=== PATIENT | female | born 1980 | race Caucasian/White ===

== ENCOUNTER 2018-01-15 21:33 | Emergency (ER) | payer MEDICAID, SELFPAY ==
[2018-01-15 21:34] VITALS: BP 119/78; PULSE 113; RESP 15; TEMP 35.3; O2SAT 98; BMI 23.8
[2018-01-15] MEDS: Cephalexin 250 MG Capsule 500 MG PO (22:29)
--- NOTE | 2018-01-15 22:39 | ED.VISSUMM ---
- ER Visit Summary Date of Service: 01/15/18 Chief Complaint: Draining scalp abscess History of Present Illness: The patient is a 37 F history of prior heroin abuse. Also prior GI bleed for which she needed a laparoscopy and blood transfusions. Patient states that the last 2 weeks she has had an abscess on top of her scalp. It had increased swelling and last night she took a knife and opened it up. It has been draining pus today. She denies any fever or chills. Physical Examination: Well-appearing young female. Vital signs are stable afebrile. She does not look septic or toxic. She is currently in no acute distress. HEENT exam poor dentition. Multiple cavities and decay. Top anterior aspect of her scalp just past her hairline there is a 1 cm abscess that is flat open and draining a small amount of pus. It is already opened. There is no surrounding cellulitis it is mildly tender. Neck nontender. Trachea midline. Lungs clear to auscultation bilaterally. Heart regular rhythm no murmur. Abdomen soft nontender very well-healed old midline ex-lap incision. Moving all 4 extremities. Calves nontender. She does have significant scarring in both antecubital areas from track molina from prior heroin abuse. Test Results: None Emergency Department Course and Treatment: Patient has an open draining abscess on the top of her scalp. This does not need to be drained at this time. There is currently no fluctuance. There is no cellulitis. Treatment Plan: Keflex 4 times daily for 10 days. Tylenol for pain. I will have them put let on the wound to help decrease her discomfort. Narcotic pain medications are out of the question. Disposition: Discharge Impression: Acute scalp abscess that is currently draining. History of heroin abuse This note was generated with [employer] dictation software. It may contain incorrect words, spelling, and punctuation that were not noted in review of the chart prior to signing ED Disposition - Plan for ED Patient: Chief Complaint: Abscess Referrals: Nory Thompson MD [Primary Care Provider] -
--- NOTE | 2018-01-15 22:42 | ED.DEP ---
ED Disposition - Plan for ED Patient: Disposition: Home or Assisted Living Chief Complaint: Abscess Instructions: ED Staph Infec Abx Tx Only Prescriptions: Cephalexin [Keflex] 500 mg PO Q6 #40 cap Referrals: Nory Thompson MD [STAFF PHYSICIAN] - Additional Instructions: Warm compresses and hot showers atop your head. Keflex 1 pill 4 times a day. Follow-up with the [facility] since clinic.
[2018-01-15 22:56] VITALS: PULSE 120; RESP 16; O2SAT 98
== END 2018-01-15 22:57 | disposition home or self-care (01) ==
PROVIDERS: Emergency Provider Emergency Medicine
DX: L02.811 Cutaneous abscess of head [any part, except face] (principal); F11.11 Opioid abuse, in remission; Z72.0 Tobacco use
CPT/HCPCS: 99282

== ENCOUNTER 2018-04-09 15:34 | Inpatient (IN) | payer SELFPAY ==
[2018-04-09 15:41] VITALS: BP 151/96; PULSE 65; RESP 15; TEMP 36.8; O2SAT 96; BMI 23.1
--- NOTE | 2018-04-09 15:46 | ED.RN ---
PT ENTERED ER VIA EMS THROUGH THE HAZMAT ROOM. PT WAS CHANGED INTO A GOWN AND HOSPITAL SOCKS AND NO BUGS NOTED. PT HAS MULTIPLE BRUISES ON HER ARMS.
--- NOTE | 2018-04-09 15:51 | CT_ITS ---
STUDY: CT ABDOMEN AND PELVIS WITHOUT CONTRAST REASON FOR EXAM: Female, 37 years old. Abdominal pain, cramping. RADIATION DOSAGE (If Supplied By Facility): CTDIvol = ( 6.27 ) mGy, DLP = ( 321.13 ) mGycm TECHNIQUE: Transaxial images were obtained from the dome of the diaphragm to the symphysis pubis without oral contrast, and without intravenous contrast. Sagittal and coronal images were reconstructed. Individualized dose optimization techniques were used for this CT. COMPARISON: None. FINDINGS: The visualized lung bases are unremarkable. The visualized portions of the heart are within normal limits. Normal liver. Normal gallbladder and extrahepatic biliary system. Normal spleen. Normal pancreas. Normal bilateral adrenal glands. Normal right kidney. Normal left kidney. The aorta is normal in caliber. There are multiple loops of dilated, fluid-filled small bowel in the upper abdomen consistent with high-grade bowel obstruction. Abrupt transition or stenotic segment is identified in the mid pelvis. Closed loop obstruction cannot be excluded. The obstruction is at the level of the mid to distal jejunum. The ileum appears decompressed. Colon is normal in caliber. There is mild free fluid in the abdomen. There is no free air Normal urinary bladder. Normal abdominal wall. Normal osseous structures. CT/Abdomen/Pelvis without Cont IMPRESSION: 1. High-grade small bowel obstruction with transition in the mid pelvis. No evidence of perforation. 2. Mild free fluid. N.B. : The above information has been verbally conveyed by Rosanna Hunt MD to Román Benjamin MD, on 04/09/2018 18:55:48 (ET). Electronically Signed: Rosanna Hunt MD at 18:50 EDT Tel , Service support ,
--- NOTE | 2018-04-09 15:53 | ED.VISSUMM ---
- ER Visit Summary Date of Service: 04/09/18 Chief Complaint: Abdominal pain History of Present Illness: The patient is a 37 F presenting for evaluation secondary to abdominal pain. Patient states that she has an underlying history of a laparotomy about 3 years ago secondary to a perforated duodenal ulcer from overuse event peds. Patient reports that since yesterday she had an onset of abdominal pain. She reports that it is a waxing and waning continuous abdominal pain that she describes as being mostly across her upper abdomen. She reports been associated with nausea no vomiting. She denies any presence of fevers associated with this. Patient denies any urinary signs or symptoms associated with this. Patient denies that she is taking any sort of of prescription medications. She does state that she drinks smokes cigarettes and uses THC. Review of systems otherwise negative. Physical Examination: Vital signs are within normal limits other than mild hyper tension. Unkempt female visibly uncomfortable secondary to pain rolling around in bed holding her stomach. Head normocephalic. Eyes are injected bilaterally with no evidence of conjunctival pallor or scleral icterus. Moist mucous membranes with poor dentition. Neck supple. Heart regular rate and rhythm. Lungs clear. Abdomen tender diffusely with no localization and some guarding noted. Large midline surgical scar is noted to be well-healed. No peripheral edema. No evidence of splinter hemorrhages Osler nodes or Janeway lesions no evidence of skin rashes or petechia. Remainder of physical otherwise unremarkable. Test Results: CBC, chemistry, lactic acid found to be unremarkable. CT abdomen and pelvis demonstrates evidence of a high-grade bowel obstruction Emergency Department Course and Treatment: Patient presented for evaluation secondary to abdominal pain. Patient had a relatively significant abdominal exam I was concerned for the possibility of intra-abdominal pathology. IV was established patient was given morphine Zofran and fluids. Laboratory workup was unremarkable, but CT showed evidence of the patient having a high-grade bowel obstruction. NG tube was ordered, I discussed patient's case with Dr. Bermeo general surgery who states that he will see the patient in consult. Patient will be admitted for further treatment with NG tube and further observation under the hospitalist. Disposition: Admission Impression: 1. High-grade bowel obstruction This note was generated with [employer] dictation software. It may contain incorrect words, spelling, and punctuation that were not noted in review of the chart prior to signing ED Disposition - Plan for ED Patient: Chief Complaint: Abd Pain Referrals: Care Physician,No Primary [NON-STAFF] -
[2018-04-09] MEDS: Ondansetron 4 MG/2 ML Vial IV (17:17)
[2018-04-09] MEDS: Mag Hydrox/Al Hydrox/Simeth 30 ML UDC PO (17:18)
[2018-04-09] MEDS: 0.9% Normal Saline 1,000 ML 1000 ML IV (17:18)
[2018-04-09] MEDS: Morphine 4 MG/ML Syringe IV (17:19)
[2018-04-09 17:29] LABS: Absolute Lymphocyte Count 0.59 X10^3/ul (0.83-4.51); Absolute Neutrophil Count 5.9 X10^3/uL (2.0-7.7); Basophil# 0.02 X10^3/uL; Basophil% 0.3 % (0-1); Differential Indicated SCAN CRITERIA MET; Eosinophil# 0.07 X10^3/uL; Hematocrit 45.6 % (37-47); Hemoglobin 14.7 g/dl (12.0-15.0); Lymphocyte # 0.59 X10^3/ul (4.0); Lymphocyte % 8.3 % (19-41); Mean Corp Hgb Conc 32.2 g/gl (32-36); Mean Corpuscular Hgb 29.9 pg (27.0-32.0); Mean Corpuscular Volume 92.9 fL (81-99); Mean Platelet Vol. 9.8 fl (6.2-12.0); Monocyte% 8.4 % (0-10); Neutrophil # 5.86 X10^3/uL (2.7-7.7); POSITIVE COUNT NO; POSITIVE DIFFERENTIAL YES; POSITIVE MORPHOLOGY NO; Platelet Count 184 K/mm3 (150-450); RBC Distribution Width CV 13.1 % (11.6-14.6); RBC Distribution Width SD 44.5 fl (35.1-43.9); Red Blood Count 4.91 M/mm3 (4.2-5.4); White Blood Count 7.1 K/mm3 (4.4-11.0)
[2018-04-09 17:34] VITALS: BP 145/121; PULSE 89; RESP 16; O2SAT 96
[2018-04-09 17:39] LABS: ALB/GLOB Ratio 0.9 RATIO (0.9-2.4); AST(SGOT) 71 U/L (15-37); Alanine Aminotransfer ALT/SGPT 136 U/L (13-56); Albumin, Serum 3.5 g/dL (3.2-5.0); Alkaline Phosphatase 80 U/L (45-117); Anion Gap 6 (5-15); BUN 21 mg/dL (7-18); Calcium,Total 8.9 mg/dL (8.5-10.1); Chloride 104 mmol/L (98-107); Creatinine, Serum 0.78 mg/dL (0.55-1.02); EST Glomerular Filtration Rate 89 mL/min (>60); Est Glom Filt Rate - Afr Amer 108 mL/min (>60); Estimated Creatinine Clearance 89.72 ml/min; Glucose 82 mg/dL (74-106); Lipase 79 U/L (73-393); Potassium 3.9 mmol/L (3.5-5.1); Protein, Total 7.5 g/dL (6.4-8.2); Sodium Level 139 mmol/L (136-145)
[2018-04-09 17:53] LABS: Pregnancy, Serum, hCG Quali. NEGATIVE Negative (0-9 Nonpreg)
[2018-04-09 18:00] VITALS: BP 146/89
[2018-04-09 18:03] LABS: Differential Comment SCANNED
[2018-04-09 18:06] LABS: Lactic Acid 0.7 mmol/L (0.4-2.0)
--- NOTE | 2018-04-09 19:05 | RAD_ITS ---
STUDY: X-RAY - ABDOMEN/PELVIS REASON FOR EXAM: Female, 37 years old. An NG tube placement. TECHNIQUE: Supine view of the chest/abdomen. COMPARISON: None. FINDINGS: Normal visualized lung del real. Nasogastric tube terminates in the stomach. Dilated, gas-filled small bowel loop is noted in the left upper quadrant measuring 4.5 cm. Stool burden is moderate. Anastomotic suture is noted in the left upper quadrant. No abnormal calcifications. Bony structures are unremarkable. RAD/Abdomen Single View (Portable) IMPRESSION: 1. NG tube terminates in the stomach. 2. Dilated small bowel consistent with previously demonstrated obstruction. Electronically Signed: Rosanna Hunt MD at 20:17 EDT Tel , Service support ,
--- NOTE | 2018-04-09 19:51 | CON.PCM_ITS ---
Problem List (1) Small bowel obstruction Status: Acute Reason for Consult Date of Consultation: 04/09/18 History of Present Illness: The patient is a 37 year old F who presents to the emergency room with a 2-day history of abdominal crampy pain. I have been asked to see this patient in surgical consultation by Dr Benjamin and a electronic copy of my surgical consult will be present on the chart. The patient states that in [facility] March 29, 2015 because of a perforated duodenal ulcer she had an exploratory laparotomy. She claims that she received multiple units of blood transfusion and platelets. She developed abdominal achy pain yesterday morning. Today she has not been able to eat last bowel movement was last night. Because of increased severity of pain she was encouraged to come to the emergency room. She does not have a local primary care physician. Her white blood cell count is 7.1 with a hemoglobin 14.7 and hematocrit 45.6 platelet count 184,000 with 82% neutrophils. BUN is elevated at 21 creatinine is 0.78. Lactic acid level 0.7. AST is elevated to 71. ALT is elevated at 136. Total bilirubin was 0.4. Alkaline phosphatase 80. Lipase is 79. Serum test is negative. Coags were not obtained.A CT scan without oral or IV contrast suggest small bowel obstruction. This is felt to be high-grade transition in the mid pelvis. Mild free fluid. Upon my arrival the patient just had an NG tube placed by nursing in the emergency room. She has copious bleeding from her left nares at the site of the NG tube. Upon questioning the patient she is a routine methamphetamine user and marijuana user. She routinely uses cigarettes had a pack per day and drinks alcohol routinely at 1-3 beers daily Past Medical History Allergies ibuprofen Adverse Reaction (Verified 01/15/18 21:37) Other Home Medications: Ambulatory Orders Medication Instructions Recorded Cephalexin [Keflex] 500 mg PO Q6 #40 cap 01/15/18 Surgical History: - - Exploratory laparotomy for duodenal ulceration Smoking Status: Current every day smoker Review of Systems Constitutional: Reports: Anorexia HEENT: Reports: Difficulty Swallowing Gastrointestinal: Reports: Abdominal Pain, Nausea, Vomiting Hematologic/ Lymphatic: Reports: Easy Bruising, Easy Bleeding Patient Problems: Active and Suspected Problems Small bowel obstruction (Acute) - Physical Exam General: Alert, Oriented x3, Cooperative, - - Evidence of poor dentition Oral: Moist Mucosa Neck: Supple Lungs: Clear to auscultation, - - Diminished air excursion Cardiovascular: Regular rate, Regular Rhythm Abdomen: Hypoactive Bowel Sounds, Distended, - - Mild tenderness to palpation to the right lower quadrant greater than left lower quadrant Long midline incision from the xiphoid all the way below the umbilicus. Small reducible incisional umbilical hernia Extremities: No Calf Tenderness Skin: Rash Present, - - Areas of self excoriation particularly face forehead Musculoskeletal: - - Patient is noted to be very slender Psych/Mental Status: Normal Affect Vital Signs Temp Pulse Resp BP Pulse Ox 98.2 F 89 16 146/89 H 96 04/09/18 15:41 04/09/18 17:34 04/09/18 17:34 04/09/18 18:00 04/09/18 17:34 Oxygen Delivery Method Room Air Weight: 139 lb 5.314 oz Body Mass Index (BMI) 23.1 Laboratory Tests Past 24 Hrs 04/09/18 04/09/18 04/09/18 17:05 17:05 17:05 WBC 7.1 RBC 4.91 Hgb 14.7 Hct 45.6 MCV 92.9 MCH 29.9 MCHC 32.2 RDW 13.1 RDW Differential 44.5 H Plt Count 184 MPV 9.8 Immature Gran % (Auto) 0.000 Neut % (Auto) 82.0 H Lymph % (Auto) 8.3 L [place] % (Auto) 8.4 Eos % (Auto) 1.0 Baso % (Auto) 0.3 Absolute Neuts (auto) 5.9 Absolute Lymphs (auto) 0.59 L Total Counted Not Reportable Differential Comment SCANNED Sodium 139 Potassium 3.9 Chloride 104 Carbon Dioxide 29.0 Anion Gap 6 BUN 21 H Creatinine 0.78 Estim Creat Clear Calc 89.72 Est GFR (MDRD) Af Amer 108 Est GFR (MDRD) Non-Af 89 BUN/Creatinine Ratio 27.0 H Glucose 82 Lactic Acid Calcium 8.9 Total Bilirubin 0.40 AST 71 H ALT 136 H Alkaline Phosphatase 80 Total Protein 7.5 Albumin 3.5 Globulin 4.0 Albumin/Globulin Ratio 0.9 Lipase 79 Serum , Qual NEGATIVE 04/09/18 17:25 WBC RBC Hgb Hct MCV MCH MCHC RDW RDW Differential Plt Count MPV Immature Gran % (Auto) Neut % (Auto) Lymph % (Auto) [place] % (Auto) Eos % (Auto) Baso % (Auto) Absolute Neuts (auto) Absolute Lymphs (auto) Total Counted Differential Comment Sodium Potassium Chloride Carbon Dioxide Anion Gap BUN Creatinine Estim Creat Clear Calc Est GFR (MDRD) Af Amer Est GFR (MDRD) Non-Af BUN/Creatinine Ratio Glucose Lactic Acid 0.7 Calcium Total Bilirubin AST ALT Alkaline Phosphatase Total Protein Albumin Globulin Albumin/Globulin Ratio Lipase Serum , Qual Assessment/Plan All Active Problems Small bowel obstruction (Acute) Noncontrasted CT scan suggest small bowel obstruction. The patient has epistasis now radiated to his left nares NG tube. She has poor dentition. Multiple areas of self excoriation. Multiple areas of ecchymosis. She presents with history of tobacco and alcohol and methamphetamine and marijuana use. At an outside hospital she has had previous surgery involving a long midline incision from the xiphoid to below the umbilicus. We do not have records of this hospitalization. Initially she suggested that she had a duodenal perforation. Some of her description of the surgery sounds like it was possibly more of a duodenal bleed Mild elevation of AST and ALT noted. Difficult to assess at this moment the degree of potential liver dysfunction. Patient at risk history for hepatitis/cirrhosis/varices She does not appear to have an acute surgical abdomen at this moment. I recommend nonoperative management with correct placement of NG tube. I recommend medical maximization of her care. Coags will be requested. I have encouraged the patient to mobilize and ambulate. She clearly would be an incre ased operative risk. To the extent of her midline incision is unlikely that she would be a candidate for laparoscopy and would require repeat laparotomy. I will follow with you. If she is not improved likely will obtain a repeat CT scan with contrast in the morning. Beck Bermeo M.D., F.A.C.S.
[2018-04-09 20:20] LABS: International Normalized Ratio 0.9; Prothrombin Time (Protime)PT. 12.2 SECONDS (11.7-14.9)
--- NOTE | 2018-04-09 20:37 | PCM.HP.STD ---
Problem List (1) Small bowel obstruction Status: Acute (2) Tobacco use Status: Chronic (3) Elevated liver enzymes Status: Chronic (4) Methamphetamine abuse Status: Chronic (5) Cannabis abuse Status: Chronic (6) Alcohol abuse Status: Chronic History of Present Illness Date of Admission: 04/09/18 Chief Complaint: Abdominal pain The patient is a 37 y/o F w/ PMHx: Prior Perforated Duodenal Ulcer s/p duodenoplasty 03/2015 at [facility], tobacco use, history of IV drug abuse including heroin usage although notes no IV usage for approximately 1-2 years, ongoing methamphetamine usage smoked and snorted, cannabis usage daily, alcohol abuse with 1-3 tall boys at least daily who presents to the [facility] on 04/09/18 with history of progressively worsening abdominal pain, distention, nausea without emesis and inability to take po w/ last BM the evening prior noted to be firm and small. Pain rated 10/10 initially, improved after NGT placement in the ED but still severe. In the ED work-up included T 98.2, heart rate 65, BP 151/96, respiratory rate 15, 96% on room air, CBC with WBC 7.1, hemoglobin 14.7, platelet 184 without market shift, markable coags, CMP with BUN/creatinine 21/0.78, lactic acid 0.7, AST/ALT 71/136, lipase 79, serum negative, CT abdomen and pelvis with high-grade small bowel obstruction with transition in the mid pelvis with no evidence of perforation with mild free fluid, KUB following NG tube placement with NG tube termination in the stomach with dilated small bowel consistent with previously demonstrated obstruction on CT. In the ED patient given normal saline in addition to bowel regimen. Dr. Bermeo, surgeon consulted per ED and evaluated patient in the emergency room. Past Medical History Past Medical History (Chronic Problems): Chronic Problems Tobacco use (Chronic) Elevated liver enzymes (Chronic) Methamphetamine abuse (Chronic) Cannabis abuse (Chronic) Alcohol abuse (Chronic) Allergies ibuprofen Adverse Reaction (Verified 01/15/18 21:37) Other Home Medications: Ambulatory Orders Medication Instructions Recorded NK 04/09/18 Surgical History: - - Exploratory laparotomy for duodenal ulceration w/ duodenoplasty, BLTL. Psychiatric History: No pertinent psych hx SIGHTER History: No pertinent SIGHTER history Lives: Alone Smoking Status: Current every day smoker - 1/2-1 ppd cigarette tobacco usage. Tobacco Use: Cigarettes Alcohol: Heavy - Patient notes at least 1-3 tall boys per day. Drugs: - - Patient notes daily cannabis usage, intermittent methamphetamine usage snorted and smoked, prior history of methamphetamine and heroin injection but she denies any IV drug usage in the past 1-2 years. - *Family History Maternal History Items: - - Patient notes a maternal and paternal family history of heart disease, diabetes, high blood pressure. Paternal History Items: - - Patient notes a maternal and paternal family history of heart disease, diabetes, high blood pressure. Review of Systems Constitutional: Reports: Anorexia, Malaise, Weakness, Fatigue. Denies: Chills, Fever, Weight Change HEENT: Denies: Head Aches, Sinus Congestion, Sinus Drainage Cardiovascular: Denies: Chest Pain, Palpitations Respiratory: Denies: Cough, Shortness of breath at rest, Sputum production Gastrointestinal: Reports: Abdominal Pain, Constipation, Nausea. Denies: Vomiting Genitourinary: Denies: Dysuria Musculoskeletal: Denies: Joint Pain, Joint Tenderness Skin: Denies: Rash, Wounds Neurological: Denies: Numbness, Tingling, Focal weakness Psychiatric: Denies: Anxiety, Depression, Homicidal Ideations, Suicidal Ideations Hematologic/ Lymphatic: Denies: Easy Bruising, Easy Bleeding VTE Information - Inpt Only VTE Present on Admission: No VTE Mechan Device Prophylaxis: SCD's VTE Pharm Prophylaxis ordered?: Yes Patient Problems: Active and Suspected Problems Small bowel obstruction (Acute) Subjective: Seated upright in the ED bed, uncomfortable appearing, falling asleep frequently, NGT in place. Objective: Physical Examination: General: awakens to stimuli but falls asleep quickly, intermittently alert, oriented x 3 and cooperative, seated upright in the ED bed, notes pain lessened but still ongoing, s/p NGT placement. Skin: normal color, turgor, no icterus, cyanosis. HEENT: AT/NC, EOMI, PERRLA, dry MM, NGT in place, no carotid bruits or JVD noted. Lungs: CTA bilaterally, moderate effort, mild decrease BL bases, no rales, ronchi or wheezing. Heart: Regular rate and rhythm; no gallop, rub audible. Abdomen: soft but was firm prior per ED physician, now s/p NGT in place, still severely TTP, absent BS in all quadrants, no longer distended, difficult to assess HSM secondary to pain. Extremities: no cyanosis, clubbing, or edema. Neurological: awakens to stimuli but falls asleep quickly, intermittently alert, oriented x 3 and cooperative; cognitive function primarily intact; pupils equally reactive to light and accomodation; cranial nerves II-XII grossly normal, moving all 4 extremities, no focal deficits, strength severely globally decreased secondary to acute presentation. Psychiatric: affect appears fatigued, flat, no acute evidence of depressive or anxiety feelings. - Physical Exam Vital Signs Temp Pulse Resp BP Pulse Ox 98.2 F 89 16 146/89 H 96 04/09/18 15:41 04/09/18 17:34 04/09/18 17:34 04/09/18 18:00 04/09/18 17:34 Oxygen Delivery Method Room Air Weight: 139 lb 5.314 oz Body Mass Index (BMI) 23.1 Laboratory Tests Past 24 Hrs 04/09/18 04/09/18 04/09/18 17:05 17:05 17:05 WBC 7.1 RBC 4.91 Hgb 14.7 Hct 45.6 MCV 92.9 MCH 29.9 MCHC 32.2 RDW 13.1 RDW Differential 44.5 H Plt Count 184 MPV 9.8 Immature Gran % (Auto) 0.000 Neut % (Auto) 82.0 H Lymph % (Auto) 8.3 L [place] % (Auto) 8.4 Eos % (Auto) 1.0 Baso % (Auto) 0.3 Absolute Neuts (auto) 5.9 Absolute Lymphs (auto) 0.59 L Total Counted Not Reportable Differential Comment SCANNED PT INR APTT Sodium 139 Potassium 3.9 Chloride 104 Carbon Dioxide 29.0 Anion Gap 6 BUN 21 H Creatinine 0.78 Estim Creat Clear Calc 89.72 Est GFR (MDRD) Af Amer 108 Est GFR (MDRD) Non-Af 89 BUN/Creatinine Ratio 27.0 H Glucose 82 Lactic Acid Calcium 8.9 Total Bilirubin 0.40 AST 71 H ALT 136 H Alkaline Phosphatase 80 Total Protein 7.5 Albumin 3.5 Globulin 4.0 Albumin/Globulin Ratio 0.9 Lipase 79 Serum , Qual NEGATIVE 04/09/18 04/09/18 17:05 17:25 WBC RBC Hgb Hct MCV MCH MCHC RDW RDW Differential Plt Count MPV Immature Gran % (Auto) Neut % (Auto) Lymph % (Auto) [place] % (Auto) Eos % (Auto) Baso % (Auto) Absolute Neuts (auto) Absolute Lymphs (auto) Total Counted Differential Comment PT 12.2 INR 0.9 APTT 31.0 Sodium Potassium Chloride Carbon Dioxide Anion Gap BUN Creatinine Estim Creat Clear Calc Est GFR (MDRD) Af Amer Est GFR (MDRD) Non-Af BUN/Creatinine Ratio Glucose Lactic Acid 0.7 Calcium Total Bilirubin AST ALT Alkaline Phosphatase Total Protein Albumin Globulin Albumin/Globulin Ratio Lipase Serum , Qual Assessment/Plan All Active Problems Small bowel obstruction (Acute) The patient is a 37 y/o F w/ PMHx: Prior Perforated Duodenal Ulcer s/p duodenoplasty 03/2015 at [facility], Tobacco use, Hx of IV drug abuse including heroin usage although notes no IV usage for approximately 1-2 years, ongoing methamphetamine usage smoked and snorted, cannabis usage daily, alcohol abuse with 1-3 tall boys at least daily who presents to the [facility] on 04/09/18 with history of progressively worsening abdominal pain, distention, nausea without emesis and inability to take po w/ last BM the evening prior noted to be firm and small. (1) Abdominal pain, nausea, emesis w/ SBO: In the ED work-up included CT A/P w/ evidence of high-grade small bowel obstruction with transition in the mid pelvis with no evidence of perforation with mild free fluid. Will admit to [facility], maintain on IVFs, continue NGT to suction, strict I&Os, IV pain/anti-emetics PRN, planned AM CT Abd/Pel per Surgery thus will defer serial KUB but may add as needed to montior bowel function, PPI IV, maintain NPO on bowel rest. General surgery as noted consulted and following. (2) Polysubstance Abuse, IVDA Hx: Patient currently not candidate for hep C treatment currently as needs to be clean, sober x 6 months, documented attendance NA or AA meetings, counseling and ongoing negative drug screens; however, amenable to HIV and hepatitis assessment. (3) Tobacco Abuse: Encouraged cessation, inpatient consultation per RT, NR if desired. (4) Elevated LFTs: Admission AST/ALT 71/136, suspect chronic, hepatitis panel pending as noted. (5) Tobacco Abuse: Encouraged cessation, inpatient consultation per RT, NR if desired. (6) History of Perforated Duodenal Ulcer: s/p rhinoplasty, maintain on IV PPI as noted above. Complicates presentation, #1. (7) DVT prophylaxis: SCDs, lovenox w/ AM hold for possible OR needs if not improving. Code Visit Inpatient E&M: 18697 Init Hosp L3
--- NOTE | 2018-04-09 20:41 | HP.PCM_ITS ---
Problem List (1) Small bowel obstruction Status: Acute (2) Tobacco use Status: Chronic (3) Elevated liver enzymes Status: Chronic (4) Methamphetamine abuse Status: Chronic (5) Cannabis abuse Status: Chronic (6) Alcohol abuse Status: Chronic History of Present Illness Date of Admission: 04/09/18 Chief Complaint: Abdominal pain The patient is a 37 y/o F w/ PMHx: Prior Perforated Duodenal Ulcer s/p duodenoplasty 03/2015 at [facility], tobacco use, history of IV drug abuse including heroin usage although notes no IV usage for approximately 1-2 years, ongoing methamphetamine usage smoked and snorted, cannabis usage daily, alcohol abuse with 1-3 tall boys at least daily who presents to the [facility] on 04/09/18 with history of progressively worsening abdominal pain, distention, nausea without emesis and inability to take po w/ last BM the evening prior noted to be firm and small. Pain rated 10/10 initially, improved after NGT placement in the ED but still severe. In the ED work-up included T 98.2, heart rate 65, BP 151/96, respiratory rate 15, 96% on room air, CBC with WBC 7.1, hemoglobin 14.7, platelet 184 without market shift, markable coags, CMP with BUN/creatinine 21/0.78, lactic acid 0.7, AST/ALT 71/136, lipase 79, serum negative, C T abdomen and pelvis with high-grade small bowel obstruction with transition in the mid pelvis with no evidence of perforation with mild free fluid, KUB following NG tube placement with NG tube termination in the stomach with dilated small bowel consistent with previously demonstrated obstruction on CT. In the ED patient given normal saline in addition to bowel regimen. Dr. Bermeo, surgeon consulted per ED and evaluated patient in the emergency room. Past Medical History Past Medical History (Chronic Problems): Chronic Problems Tobacco use (Chronic) Elevated liver enzymes (Chronic) Methamphetamine abuse (Chronic) Cannabis abuse (Chronic) Alcohol abuse (Chronic) Allergies ibuprofen Adverse Reaction (Verified 01/15/18 21:37) Other Home Medications: Ambulatory Orders Medication Instructions Recorded NK 04/09/18 Surgical History: - - Exploratory laparotomy for duodenal ulceration w/ duodenoplasty, BLTL. 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 Tobacco Use: Cigarettes Alcohol: Heavy - Patient notes at least 1-3 tall boys per day. Drugs: - - Patient notes daily cannabis usage, intermittent methamphetamine usage snorted and smoked, prior history of methamphetamine and heroin injection but she denies any IV drug usage in the past 1-2 years. - *Family History Maternal History Items: - - Patient notes a maternal and paternal family history of heart disease, diabetes, high blood pressure. Paternal History Items: - - Patient notes a maternal and paternal family history of heart disease, diabetes, high blood pressure. Review of Systems Constitutional: Reports: Anorexia, Malaise, Weakness, Fatigue. Denies: Chills, Fever, Weight Change HEENT: Denies: Head Aches, Sinus Congestion, Sinus Drainage Cardiovascular: Denies: Chest Pain, Palpitations Respiratory: Denies: Cough, Shortness of breath at rest, Sputum production Gastrointestinal: Reports: Abdominal Pain, Constipation, Nausea. Denies: Vomiting Genitourinary: Denies: Dysuria Musculoskeletal: Denies: Joint Pain, Joint Tenderness Skin: Denies: Rash, Wounds Neurological: Denies: Numbness, Tingling, Focal weakness Psychiatric: Denies: Anxiety, Depression, Homicidal Ideations, Suicidal Ideations Hematologic/ Lymphatic: Denies: Easy Bruising, Easy Bleeding VTE Information - Inpt Only VTE Present on Admission: No VTE Mechan Device Prophylaxis: SCD's VTE Pharm Prophylaxis ordered?: Yes Patient Problems: Active and Suspected Problems Small bowel obstruction (Acute) Subjective: Seated upright in the ED bed, uncomfortable appearing, falling asleep frequently, NGT in place. Objective: Physical Examination: General: awakens to stimuli but falls asleep quickly, intermittently alert, oriented x 3 and cooperative, seated upright in the ED bed, notes pain lessened but still ongoing, s/p NGT placement. Skin: normal color, turgor, no icterus, cyanosis. HEENT: AT/NC, EOMI, PERRLA, dry MM, NGT in place, no carotid bruits or JVD noted. Lungs: CTA bilaterally, moderate effort, mild decrease BL bases, no rales, ronchi or wheezing. Heart: Regular rate and rhythm; no gallop, rub audible. Abdomen: soft but was firm prior per ED physician, now s/p NGT in place, still severely TTP, absent BS in all quadrants, no longer distended, difficult to assess HSM secondary to pain. Extremities: no cyanosis, clubbing, or edema. Neurological: awakens to stimuli but falls asleep quickly, intermittently alert, oriented x 3 and cooperative; cognitive function primarily intact; pupils equally reactive to light and accomodation; cranial nerves II-XII grossly normal, moving all 4 extremities, no focal deficits, strength severely globally decreased secondary to acute presentation. Psychiatric: affect appears fatigued, flat, no acute evidence of depressive or anxiety feelings. - Physical Exam Vital Signs Temp Pulse Resp BP Pulse Ox 98.2 F 89 16 146/89 H 96 04/09/18 15:41 04/09/18 17:34 04/09/18 17:34 04/09/18 18:00 04/09/18 17:34 Oxygen Delivery Method Room Air Weight: 139 lb 5.314 oz Body Mass Index (BMI) 23.1 Laboratory Tests Past 24 Hrs 04/09/18 04/09/18 04/09/18 17:05 17:05 17:05 WBC 7.1 RBC 4.91 Hgb 14.7 Hct 45.6 MCV 92.9 MCH 29.9 MCHC 32.2 RDW 13.1 RDW Differential 44.5 H Plt Count 184 MPV 9.8 Immature Gran % (Auto) 0.000 Neut % (Auto) 82.0 H Lymph % (Auto) 8.3 L Cole % (Auto) 8.4 Eos % (Auto) 1.0 Baso % (Auto) 0.3 Absolute Neuts (auto) 5.9 Absolute Lymphs (auto) 0.59 L Total Counted Not Reportable Differential Comment SCANNED PT INR APTT Sodium 139 Potassium 3.9 Chloride 104 Carbon Dioxide 29.0 Anion Gap 6 BUN 21 H Creatinine 0.78 Estim Creat Clear Calc 89.72 Est GFR (MDRD) Af Amer 108 Est GFR (MDRD) Non-Af 89 BUN/Creatinine Ratio 27.0 H Glucose 82 Lactic Acid Calcium 8.9 Total Bilirubin 0.40 AST 71 H ALT 136 H Alkaline Phosphatase 80 Total Protein 7.5 Albumin 3.5 Globulin 4.0 Albumin/Globulin Ratio 0.9 Lipase 79 Serum , Qual NEGATIVE 04/09/18 04/09/18 17:05 17:25 WBC RBC Hgb Hct MCV MCH MCHC RDW RDW Differential Plt Count MPV Immature Gran % (Auto) Neut % (Auto) Lymph % (Auto) Cole % (Auto) Eos % (Auto) Baso % (Auto) Absolute Neuts (auto) Absolute Lymphs (auto) Total Counted Differential Comment PT 12.2 INR 0.9 APTT 31.0 Sodium Potassium Chloride Carbon Dioxide Anion Gap BUN Creatinine Estim Creat Clear Calc Est GFR (MDRD) Af Amer Est GFR (MDRD) Non-Af BUN/Creatinine Ratio Glucose Lactic Acid 0.7 Calcium Total Bilirubin AST ALT Alkaline Phosphatase Total Protein Albumin Globulin Albumin/Globulin Ratio Lipase Serum , Qual Assessment/Plan All Active Problems Small bowel obstruction (Acute) The patient is a 37 y/o F w/ PMHx: Prior Perforated Duodenal Ulcer s/p duodenoplasty 03/2015 at [facility], Tobacco use, Hx of IV drug abuse including heroin usage although notes no IV usage for approximately 1-2 years, ongoing methamphetamine usage smoked and snorted, cannabis usage daily, alcohol abuse with 1-3 tall boys at least daily who presents to the [facility] on 04/09/18 with history of progressively worsening abdominal pain, distention, nausea without emesis and inability to take po w/ last BM the evening prior noted to be firm and small. (1) Abdominal pain, nausea, emesis w/ SBO: In the ED work-up included CT A/P w/ evidence of high-grade small bowel obstruction with transition in the mid pelvis with no evidence of perforation with mild free fluid. Will admit to [facility], maintain on IVFs, continue NGT to suction, strict I&Os, IV pain/anti-emetics PRN, planned AM CT Abd/Pel per Surgery thus will defer serial KUB but may add as needed to montior bowel function, PPI IV, maintain NPO on bowel rest. General surgery as noted consulted and following. (2) Polysubstance Abuse, IVDA Hx: Patient currently not candidate for hep C treatment currently as needs to be clean, sober x 6 months, documented attendance NA or AA meetings, counseling and ongoing negative drug screens; however, amenable to HIV and hepatitis assessment. (3) Tobacco Abuse: Encouraged cessation, inpatient consultation per RT, NR if desired. (4) Elevated LFTs: Admission AST/ALT 71/136, suspect chronic, hepatitis panel pending as noted. (5) Tobacco Abuse: Encouraged cessation, inpatient consultation per RT, NR if desired. (6) History of Perforated Duodenal Ulcer: s/p rhinoplasty, maintain on IV PPI as noted above. Complicates presentation, #1. (7) DVT prophylaxis: SCDs, lovenox w/ AM hold for possible OR needs if not improving. Code Visit Inpatient E&M: 61342 Init Hosp L3
[2018-04-09 21:05] VITALS: BP 126/85; PULSE 69; RESP 16; O2SAT 100
[2018-04-09 21:25] VITALS: BMI 23.1; BMI 23.2
[2018-04-09 21:42] VITALS: BP 137/95; PULSE 72; RESP 16; TEMP 36.6; O2SAT 100
[2018-04-09] MEDS: 0.9% Normal Saline 1,000 ML 125 ML IV (22:51)
[2018-04-09] MEDS: Enoxaparin 40 MG/0.4 ML Syringe SC (22:51)
[2018-04-09] MEDS: HYDROmorphone 1 MG/ML Syringe IV (22:57)
[2018-04-09 23:12] LABS: HIV - WCH Non-Reactive (Nonreactive)
[2018-04-10] VITALS (12 sets, daily range): BP systolic 118–138; BP diastolic 66–94; PULSE 73–119; RESP 12–20; TEMP 36.4–37.1; O2SAT 92–98; BMI 23.1
[2018-04-10] MEDS: Ondansetron 4 MG/2 ML Vial IV (03:16)
[2018-04-10] MEDS: HYDROmorphone 1 MG/ML Syringe IV ×4 (03:17→22:00)
[2018-04-10] MEDS: 0.9% NaCl Peripheral Flush Adult/Peds IV (03:18)
--- NOTE | 2018-04-10 05:00 | CT_ITS ---
STUDY: CT ABDOMEN AND PELVIS WITH CONTRAST REASON FOR EXAM: Female, 37 years old. Small bowel obstruction and elevated liver enzymes. Patient has history of perforated duodenal ulcer. Patient underwent duodenoplasty on March 31, 2018. RADIATION DOSAGE (If Supplied By Facility): CTDIvol = ( 11.44 ) mGy, DLP = ( 490.24 ) mGycm TECHNIQUE: Transaxial images were obtained from the dome of the diaphragm to the symphysis pubis with oral contrast. 100 ml of Isovue 300 contrast was administered. Sagittal and coronal images were reconstructed. Individualized dose optimization techniques were used for this CT. COMPARISON: CT abdomen and pelvis dated April 09, 2018. FINDINGS: The visualized lung bases are unremarkable. The visualized portions of the heart are within normal limits. Small lucency is visible within the right lobe liver probably representing a small cyst. This measures approximately 11.5 mm in greatest dimension. Normal gallbladder and extrahepatic biliary system. Normal spleen. Normal pancreas. Normal bilateral adrenal glands. Normal right kidney. Normal left kidney. Normal visualized stomach. There is dilated small bowel within the right lower quadrant, probably representing distal ileum. Maximum transverse dimension of the abnormal small bowel measures approximately 4.4 cm. There is obvious stasis of stool within the distal small bowel. There is increasing ascites of the right upper quadrant and pelvis compared to previous study suggests the possibility of tiny perforation. Stool is visible throughout the colon with scattered diverticula. There is non-visualization of the appendix. Normal abdominal aorta. There is venous distention of the inferior vena cava (IVC). Normal retroperitoneum. Normal urinary bladder. Normal visualized uterus. Normal abdominal wall. Normal osseous structures. CT/Abdomen/Pelvis WITH Contrast IMPRESSION: 1. Dilated small bowel within the right side of the abdomen suggesting possible closed loop obstruction. The proximal small bowel is not dilated. 2. Increasing free fluid is visible in the right side of the abdomen and pelvis suggesting possible tiny perforation. Electronically Signed: Lindy Martinez MD at 5:42 EDT , Service support ,
[2018-04-10 05:37] LABS: Amphetamine Urine VISTA POSITIVE (<1000 ng/mL); Barbiturate Urine VISTA NEGATIVE (< 200 ng/mL); Benzodiazepine Urine VISTA NEGATIVE (< 200 ng/mL); Cocaine Urine VISTA NEGATIVE (< 300 ng/mL); Ecstacy Urine VISTA POSITIVE (< 500 ng/mL); Methadone Urine VISTA NEGATIVE (< 300 ng/mL); PCP Urine VISTA NEGATIVE (< 25 ng/mL); THC Urine VISTA POSITIVE (< 50 ng/mL); Vista UDS pH Range 7
[2018-04-10 05:45] LABS: Absolute Lymphocyte Count 1.09 X10^3/ul (0.83-4.51); Absolute Neutrophil Count 4.8 X10^3/uL (2.0-7.7); Basophil# 0.02 X10^3/uL; Basophil% 0.3 % (0-1); Eosinophil# 0.13 X10^3/uL; Eosinophils% 1.9 % (0-5); Hematocrit 44.7 % (37-47); Hemoglobin 14.1 g/dl (12.0-15.0); Lymphocyte # 1.09 X10^3/ul (4.0); Lymphocyte % 15.6 % (19-41); Mean Corp Hgb Conc 31.5 g/gl (32-36); Mean Corpuscular Volume 95.1 fL (81-99); Mean Platelet Vol. 9.8 fl (6.2-12.0); Monocyte# 0.89 X10^3/uL; Monocyte% 12.8 % (0-10); Neutrophil # 4.84 X10^3/uL (2.7-7.7); Neutrophil % 69.3 % (47-70); Platelet Count 202 K/mm3 (150-450)
--- NOTE | 2018-04-10 05:54 | PN.SURG_ITS ---
Patient Problems: Active and Suspected Problems Small bowel obstruction (Acute) Subjective: Pt slept all night until CT this am. States abdomen is better at rest, uncomfortable with bending - Physical Exam General: Alert, Oriented x3, Cooperative, No apparent distress Abdomen: Soft, Bowel Sounds Not Present - RLQ tenderness greater than LLQ tenderness Vital Signs Temp Pulse Resp BP Pulse Ox 98.1 F 76 18 138/87 H 95 04/10/18 05:39 04/10/18 05:39 04/10/18 05:39 04/10/18 05:39 04/10/18 05:39 Oxygen Delivery Method Room Air Weight: 139 lb 5.314 oz Body Mass Index (BMI) 23.1 Intake and Output for Last 24 Hours 04/08/18 04/09/18 04/10/18 23:59 23:59 23:59 Intake Total 828 / 828 Output Total 500 / 500 Balance 328 / 328 Laboratory Tests Past 24 Hrs 04/09/18 04/09/18 04/09/18 17:05 17:05 17:05 WBC 7.1 RBC 4.91 Hgb 14.7 Hct 45.6 MCV 92.9 MCH 29.9 MCHC 32.2 RDW 13.1 RDW Differential 44.5 H Plt Count 184 MPV 9.8 Immature Gran % (Auto) 0.000 Neut % (Auto) 82.0 H Lymph % (Auto) 8.3 L [place] % (Auto) 8.4 Eos % (Auto) 1.0 Baso % (Auto) 0.3 Absolute Neuts (auto) 5.9 Absolute Lymphs (auto) 0.59 L Total Counted Not Reportable Differential Comment SCANNED PT INR APTT Sodium 139 Potassium 3.9 Chloride 104 Carbon Dioxide 29.0 Anion Gap 6 BUN 21 H Creatinine 0.78 Estim Creat Clear Calc 89.72 Est GFR (MDRD) Af Amer 108 Est GFR (MDRD) Non-Af 89 BUN/Creatinine Ratio 27.0 H Glucose 82 Lactic Acid Calcium 8.9 Total Bilirubin 0.40 AST 71 H ALT 136 H Alkaline Phosphatase 80 Total Protein 7.5 Albumin 3.5 Globulin 4.0 Albumin/Globulin Ratio 0.9 Lipase 79 Serum , Qual NEGATIVE Urine Opiates Screen Urine Methadone Screen Ur Barbiturates Screen Ur Phencyclidine Scrn Ur Amphetamines Screen U Methamphetamin-MDMA U Benzodiazepines Scrn Urine Cocaine Screen U Cannabinoids Screen Ur Drug Screen Comment Hepatitis A IgM Ab Hepatitis A Ab Total Hep Bs Antigen Hep B Core Total Ab Hep B Core IgM Ab HIV 1&2 Antibody 04/09/18 04/09/18 04/09/18 17:05 17:05 17:25 WBC RBC Hgb Hct MCV MCH MCHC RDW RDW Differential Plt Count MPV Immature Gran % (Auto) Neut % (Auto) Lymph % (Auto) [place] % (Auto) Eos % (Auto) Baso % (Auto) Absolute Neuts (auto) Absolute Lymphs (auto) Total Counted Differential Comment PT 12.2 INR 0.9 APTT 31.0 Sodium Potassium Chloride Carbon Dioxide Anion Gap BUN Creatinine Estim Creat Clear Calc Est GFR (MDRD) Af Amer Est GFR (MDRD) Non-Af BUN/Creatinine Ratio Glucose Lactic Acid 0.7 Calcium Total Bilirubin AST ALT Alkaline Phosphatase Total Protein Albumin Globulin Albumin/Globulin Ratio Lipase Serum , Qual Urine Opiates Screen Urine Methadone Screen Ur Barbiturates Screen Ur Phencyclidine Scrn Ur Amphetamines Screen U Methamphetamin-MDMA U Benzodiazepines Scrn Urine Cocaine Screen U Cannabinoids Screen Ur Drug Screen Comment Hepatitis A IgM Ab Hepatitis A Ab Total Hep Bs Antigen Hep B Core Total Ab Hep B Core IgM Ab HIV 1&2 Antibody Non-Reactive 04/10/18 04/10/18 04/10/18 05:07 05:24 05:24 WBC Pending RBC Pending Hgb Pending Hct Pending MCV Pending MCH Pending MCHC Pending RDW Pending RDW Differential Pending Plt Count Pending MPV Immature Gran % (Auto) Neut % (Auto) Pending Lymph % (Auto) [place] % (Auto) Eos % (Auto) Baso % (Auto) Absolute Neuts (auto) Pending Absolute Lymphs (auto) Total Counted Pending Differential Comment PT INR APTT Sodium Pending Potassium Pending Chloride Pending Carbon Dioxide Pending Anion Gap Pending BUN Pending Creatinine Pending Estim Creat Clear Calc Est GFR (MDRD) Af Amer Pending Est GFR (MDRD) Non-Af Pending BUN/Creatinine Ratio Pending Glucose Pending Lactic Acid Calcium Pending Total Bilirubin AST ALT Alkaline Phosphatase Total Protein Albumin Globulin Albumin/Globulin Ratio Lipase Serum , Qual Urine Opiates Screen POSITIVE H Urine Methadone Screen NEGATIVE Ur Barbiturates Screen NEGATIVE Ur Phencyclidine Scrn NEGATIVE Ur Amphetamines Screen POSITIVE H U Methamphetamin-MDMA POSITIVE H U Benzodiazepines Scrn NEGATIVE Urine Cocaine Screen NEGATIVE U Cannabinoids Screen POSITIVE H Ur Drug Screen Comment Hepatitis A IgM Ab Hepatitis A Ab Total Hep Bs Antigen Hep B Core Total Ab Hep B Core IgM Ab HIV 1&2 Antibody 04/10/18 05:24 WBC RBC Hgb Hct MCV MCH MCHC RDW RDW Differential Plt Count MPV Immature Gran % (Auto) Neut % (Auto) Lymph % (Auto) [place] % (Auto) Eos % (Auto) Baso % (Auto) Absolute Neuts (auto) Absolute Lymphs (auto) Total Counted Differential Comment PT INR APTT Sodium Potassium Chloride Carbon Dioxide Anion Gap BUN Creatinine Estim Creat Clear Calc Est GFR (MDRD) Af Amer Est GFR (MDRD) Non-Af BUN/Creatinine Ratio Glucose Lactic Acid Calcium Total Bilirubin AST ALT Alkaline Phosphatase Total Protein Albumin Globulin Albumin/Globulin Ratio Lipase Serum , Qual Urine Opiates Screen Urine Methadone Screen Ur Barbiturates Screen Ur Phencyclidine Scrn Ur Amphetamines Screen U Methamphetamin-MDMA U Benzodiazepines Scrn Urine Cocaine Screen U Cannabinoids Screen Ur Drug Screen Comment Hepatitis A IgM Ab Pending Hepatitis A Ab Total Pending Hep Bs Antigen Pending Hep B Core Total Ab Pending Hep B Core IgM Ab Pending HIV 1&2 Antibody Medical Necessity - Tobacco Use Smoking Status: Current every day smoker Tobacco Use: Cigarettes Assessment/Plan All Active Problems Small bowel obstruction (Acute) CT: small bowel obstruction, possible closed loop. Increased fluid, questioning possible perforation. Dilated vena cava No fever or tachycardia. Pt slept all night. WBC normal and unchanged. No left shift. Fluid on CT likely ascites Labs pending Recommend exploratory laparotomy to pt. I have explained indication, risks, benefits, complications. The extent of her previous surgery suggest that I will proceed with laparotomy rather than laparoscopy. Small ventral incisional hernia at umbilicus noted.
[2018-04-10 05:56] LABS: POSITIVE COUNT NO; POSITIVE DIFFERENTIAL NO; POSITIVE MORPHOLOGY NO
[2018-04-10 06:08] LABS: Anion Gap 7 (5-15); BUN 21 mg/dL (7-18); BUN/Creat Ratio 27.9 RATIO (10-20); Calcium,Total 8.4 mg/dL (8.5-10.1); Chloride 106 mmol/L (98-107); Creatinine, Serum 0.75 mg/dL (0.55-1.02); EST Glomerular Filtration Rate 92 mL/min (>60); Est Glom Filt Rate - Afr Amer 111 mL/min (>60); Estimated Creatinine Clearance 93.31 ml/min; Glucose 59 mg/dL (74-106); Potassium 3.9 mmol/L (3.5-5.1); Sodium Level 139 mmol/L (136-145)
[2018-04-10 07:08] LABS: Lactic Acid 0.6 mmol/L (0.4-2.0)
[2018-04-10 08:03] LABS: Internal QC Validated? YES +Cl - CLEAR BKGD
[2018-04-10 08:04] LABS: Pregnancy, Urine Negative Negative
--- NOTE | 2018-04-10 10:15 | CASEMGMT ---
RN REGGIE Face to Face with patient for initial transition planning/care coordination assessment. RN CM introduced self and role at [facility]. Patient lying in bed, alert and oriented. Patient willing to participate in assessment and is able to answer all questions appropriately. Care providers, pharmacy, and demographics verified. Patient states that she is currently homeless and denies needs at this time. MILDRED Gonsalez updated regarding patient stating she is homeless and has no insurance and requesting resources. Patient states she has no further needs or concerns at this time. CM to follow for discharge planning needs that may arise. PCP: Nory Thompson MD Specialists: None Preferred Pharmacy: [facility] Insurance: Self pay Prescription Benefit: Self pay Living Will/HPOA: None, declined additional information LNOK: Parents, not a good relationship. Has boyfriend that is looking for housing or somewhere to stay Living Arrangements: Patient states she is currently homeless and agreeable to talk to for resources Transportation: Patient states she ride a bicycle DME/HHC: None Disposition Plan: TBD. MILDRED to assist and provide housing resources. Payton SILVERMANN, RN, CM
[2018-04-10] MEDS: 0.9% Normal Saline 1,000 ML 125 ML IV (10:22)
--- NOTE | 2018-04-10 12:02 | CASEMGMT ---
Social Work Note SW attempted to meet with pt to discuss self pay status, hx of drug use and per RN CM pt is also homeless. Pt currently off floor. SW will attempt to meet with pt later today or tomorrow. Payton Gonsalez NURSE OFFICE, PROJECT PLANNER
--- NOTE | 2018-04-10 14:20 | PCM.PN.HOSP ---
Patient Problems: Active and Suspected Problems Small bowel obstruction (Acute) Subjective: The patient was admitted yesterday with diffuse abdominal pain for 2 days. Patient also noted nausea, but no vomiting, no BM for last 2 days with abdominal distention and worsening abdominal pain. Patient had perforated duodenal ulcer for which she required rhinoplasty at [facility] on March 2015. CT abdomen images reviewed of 04/09 and 04/10 shows a small bowel obstruction with transition point in the mid pelvis. CT abdomen of 04/10 shows increasing free fluid in the right side of abdomen and pelvis suggesting possible tiny perforation. Clinical Impression(s) from Imaging Studies Abdomen/Pelvis CT 04/09/18 15:51 IMPRESSION: 1. High-grade small bowel obstruction with transition in the mid pelvis. No evidence of perforation. 2. Mild free fluid. N.B. : The above information has been verbally conveyed by Rosanna Hunt MD to Román Benjamin MD, on 04/09/2018 18:55:48 (ET). Electronically Signed: Rosanna Hunt MD at 18:50 EDT Tel , Service support , ADDENDUM: 04/09/18 1904 KUB X-Ray 04/09/18 19:05 IMPRESSION: 1. NG tube terminates in the stomach. 2. Dilated small bowel consistent with previously demonstrated obstruction. Electronically Signed: Rosanna Hunt MD at 20:17 EDT Tel , Service support , Abdomen/Pelvis CT 04/10/18 05:00 IMPRESSION: 1. Dilated small bowel within the right side of the abdomen suggesting possible closed loop obstruction. The proximal small bowel is not dilated. 2. Increasing free fluid is visible in the right side of the abdomen and pelvis suggesting possible tiny perforation. El Vitals/I&O's: Vital Signs Temp Pulse Resp BP Pulse Ox 98.0 F 119 H 18 128/82 H 95 04/10/18 11:24 04/10/18 11:24 04/10/18 11:24 04/10/18 11:24 04/10/18 11:24 Oxygen Delivery Method Room Air Weight: 139 lb 5.314 oz Body Mass Index (BMI) 23.1 Intake and Output for Last 24 Hours 04/08/18 04/09/18 04/10/18 23:59 23:59 23:59 Intake Total 2522 Output Total 500 / 500 Balance 2022 General: Alert, Oriented x3, Cooperative HEENT: Atraumatic, PERRLA, EOMI, Normocephalic Oral: - - NG tube present. About 600 mL NG tube bilious in nature since 12 AM today Neck: Supple, No JVD, Negative Carotid Bruits Lungs: Clear to auscultation, No rhonchi, No wheeze, No rales, Diminished - Entry diminished in bilateral lung bases Cardiovascular: Regular rate, Regular Rhythm, Normal S1, Normal S2, No murmurs Abdomen: Soft, Hypoactive Bowel Sounds, Distended - Diffuse distention of abdomen, Guarding, Tender - Diffuse tenderness present. Moderate guarding but no rigidity Extremities: No edema, Capillary Refill Less than 3 Seconds Skin: No rashes, No breakdown Musculoskeletal: No Tenderness to Palpation of Joints or Extremities Neurological: Cranial nerves II-XII grossly intact, Neuro grossly intact, - Psych/Mental Status: Normal Affect, Appropriate, - - History of heroin and cocaine use Laboratory Results 04/09/18 17:05: WBC 7.1, RBC 4.91, Hgb 14.7, Hct 45.6, MCV 92.9, MCH 29.9, MCHC 32.2, RDW 13.1, RDW Differential 44.5 H, Plt Count 184, MPV 9.8, Immature Gran % (Auto) 0.000, Neut % (Auto) 82.0 H, Lymph % (Auto) 8.3 L, [place] % (Auto) 8.4, Eos % (Auto) 1.0, Baso % (Auto) 0.3, Absolute Neuts (auto) 5.9, Absolute Lymphs (auto) 0.59 L, Total Counted Not Reportable, Differential Comment SCANNED 04/09/18 17:05: Sodium 139, Potassium 3.9, Chloride 104, Carbon Dioxide 29.0, Anion Gap 6, BUN 21 H, Creatinine 0.78, Estim Creat Clear Calc 89.72, Est GFR (MDRD) Af Amer 108, Est GFR (MDRD) Non-Af 89, BUN/Creatinine Ratio 27.0 H, Glucose 82, Calcium 8.9, Total Bilirubin 0.40, AST 71 H, ALT 136 H, Alkaline Phosphatase 80, Total Protein 7.5, Albumin 3.5, Globulin 4.0, Albumin/Globulin Ratio 0.9, Lipase 79 04/09/18 17:05: Serum , Qual NEGATIVE 04/09/18 17:05: PT 12.2, INR 0.9, APTT 31.0 04/09/18 17:05: HIV 1&2 Antibody Non-Reactive 04/09/18 17:25: Lactic Acid 0.7 04/10/18 05:07: Urine Opiates Screen POSITIVE H, Urine Methadone Screen NEGATIVE, Ur Barbiturates Screen NEGATIVE, Ur Phencyclidine Scrn NEGATIVE, Ur Amphetamines Screen POSITIVE H, U Methamphetamin-MDMA POSITIVE H, U Benzodiazepines Scrn NEGATIVE, Urine Cocaine Screen NEGATIVE, U Cannabinoids Screen POSITIVE H, Ur Drug Screen Comment 04/10/18 05:24: WBC 7.0, RBC 4.70, Hgb 14.1, Hct 44.7, MCV 95.1, MCH 30.0, MCHC 31.5 L, RDW 13.0, RDW Differential 44.0 H, Plt Count 202, MPV 9.8, Immature Gran % (Auto) 0.100, Neut % (Auto) 69.3, Lymph % (Auto) 15.6 L, [place] % (Auto) 12.8 H, Eos % (Auto) 1.9, Baso % (Auto) 0.3, Absolute Neuts (auto) 4.8, Absolute Lymphs (auto) 1.09, Total Counted Not Reportable 04/10/18 05:24: Sodium 139, Potassium 3.9, Chloride 106, Carbon Dioxide 26.0, Anion Gap 7, BUN 21 H, Creatinine 0.75, Estim Creat Clear Calc 93.31, Est GFR (MDRD) Af Amer 111, Est GFR (MDRD) Non-Af 92, BUN/Creatinine Ratio 27.9 H, Glucose 59 L, Calcium 8.4 L 04/10/18 05:24: Hepatitis A IgM Ab Pending, Hepatitis A Ab Total Pending, Hep Bs Antigen Pending, Hep B Core Total Ab Pending, Hep B Core IgM Ab Pending 04/10/18 05:57: Urine Test Negative 04/10/18 06:28: Lactic Acid 0.6 Current Medications Enoxaparin Sodium (Lovenox) 40 mg SC DAILY@1000 JITENDRA Last Admin: 04/10/18 09:34 Dose: Not Given Hydromorphone HCl (Dilaudid Inj) 1 mg IV Q3H PRN PRN PRN Reason: SEVERE PAIN (6-10/10) Last Admin: 04/10/18 10:22 Dose: 1 mg Sodium Chloride () 1,000 mls @ 125 mls/hr IV .Q8H JITENDRA Last Admin: 04/10/18 10:22 Dose: 125 mls/hr Pantoprazole Sodium 40 mg/ (Sodium Chloride) 110 mls @ 330 mls/hr IV Q12 [facility] Last Admin: 04/10/18 09:35 Dose: 330 mls/hr Magnesium Hydroxide (Milk Of Magnesia) 30 ml PO DAILY PRN PRN PRN Reason: Constipation Nicotine (Nicoderm Cq (Pbkc)) 21 mg TRANSDERM. DAILY [facility] Last Admin: 04/09/18 22:51 Dose: 21 mg Ondansetron HCl (Zofran) 4 mg IV Q8H PRN PRN PRN Reason: NAUSEA Last Admin: 04/10/18 03:16 Dose: 4 mg Promethazine HCl (Phenergan) 12.5 mg IV Q6H PRN PRN PRN Reason: NAUSEA/VOMITING Sodium Chloride () 5 - 30 ml IV UD PRN PRN Reason: SALINE FLUSH Last Admin: 04/10/18 03:18 Dose: 10 ml Medical Necessity - Tobacco Use Smoking Status: Current every day smoker Tobacco Use: Cigarettes Assessment/Plan All Active Problems Small bowel obstruction (Acute) The patient is a 37 y/o F with history of Perforated Duodenal Ulcer s/p duodenoplasty 03/2015 at [facility], Tobacco use, Hx of IV drug abuse including heroin but sober for for approximately 1-2 years, ongoing methamphetamine usage smoked and snorted, cannabis usage daily, alcohol abuse daily was admitted on 04/09/18 with history of progressively worsening abdominal pain, distention, nausea without emesis and and no bowel movement for 2 days. NG tube inserted and bilious aspiration done CT abdomen images reviewed of 04/09 and 04/10 shows a small bowel obstruction with transition point in the mid pelvis. CT abdomen of 04/10 shows increasing free fluid in the right side of abdomen and pelvis suggesting possible tiny perforation. The patient was seen by surgeon, Dr. Beck Bermeo and recommended open laparotomy rather laparoscopy in view of previous surgery. 1. High-grade small bowel obstruction with transition point in the mid pelvis with free fluid in the right side of abdomen and pelvis suggesting possible tiny perforation: [facility] Continue and use suction. On IV fluid. N.p.o. Patient agreed for surgery and is scheduled for laparotomy. Patient is moderate risk in view of substance use history along with smoking marijuana and alcohol use although she is 37 years old. 2. Polysubstance use with history of heroin IVDA use, methamphetamine, marijuana smoking and snorting: U tox is positive of methamphetamine, amphetamines, opioids, and cannabinoids. Although, patient denies use of pain medication but I think she is probably taking it as opioids are positive. Patient will need [facility] consult for rehab 3. Chronic alcohol use with elevated transaminases, probably chronic hepatitis secondary to polysubstance use/possible chronic hepatitis C: LFT shows elevated ALT 136, AST is 71 but normal alkaline phosphatase and total bili. Lactic acid normal. Viral hepatitis is already been ordered but I do not see hepatitis C ordered. HIV negative. Further evaluation and management as an outpatient. 4. Chronic smoking cigarettes and marijuana smoking and snorting: Encourage cessation. Inpatient counseling done. 5. History of perforated duodenal ulcer status post duodenoplasty. DVT prophylaxis: On SCDs. Lovenox on hold for OR. Code Visit Inpatient E&M: 01490 Subs Hosp L3
--- NOTE | 2018-04-10 14:22 | PCM.OPRPT ---
Problem List (1) Small bowel obstruction Status: Acute Report of Operation Date of Procedure: 04/10/18 Pre-Operative Diagnosis: Small bowel obstruction secondary to adhesions. Umbilical ventral incisional hernia Post-Operative Diagnosis: Same Surgery/Procedure Performed:: Exploratory laparotomy with extensive lysis of adhesions and ventral incisional herniorrhaphy Description of Surgical Findings:: Timeout and informed consent was obtained. 37-year-old female was taken to the operating place upon the table. She underwent general endotracheal intubation anesthesia. Cefotetan 2 g are given intravenously preoperatively. The abdomen sterilely prepped and draped. A vertical infraumbilical incision was created. Despite no previous incision mostly there there were adhesions of omentum to the anterior abdominal wall. These had to be sharply dissected free. Ascitic fluid was encountered. There was absolutely no evidence of any bowel perforation and no succus entericus. This was a misinterpretation on the preoperative CT scan. The infraumbilical incision was lengthened to allow for better visualization. There were dilated loops of small bowel. Upon palpation there is evidence of a tight adhesive band down at the root of the mesentery. I was able to visualize some lysed that band. I was then able to elevate the small bowel. I spent another hour lysing adhesions to loops of small bowel. There were multiple loops of small bowel that appeared to have semisolid material within them. I then inspected the small bowel from distal collapsed diminutive small bowel to the more proximal distended small bowel. There was still small bowel was moderately extended and extended into the left upper quadrant. I felt that I had already accomplished the lysis of adhesions at the site of obstruction and I did not continue the adhesion lysis more proximally. Total operative time for lysis of adhesions was approximately 2 hours. The bowel was inspected there were absolutely no enterotomies. Bowel was nicely viable was placed back within the abdomen with a nice curvilinear fashion. The greater omentum which quite attenuated was placed overlying. The midline wound and ventral incisional hernia was closed with a running #1 Prolene. Skin edges were approximated running septic or 4-0 Monocryl. Steri-Strips Telfa and OpSite dressings applied. Sponge and instrument and needle counts were reported to the surgeon be correct. Specimens none. Drains none. Blood loss minimal. She was taken to the recovery area in satisfactory condition without apparent complication Beck Bermeo M.D., F.A.C.S. Type of Anesthesia:: General Anesthesiologist: Shanell Armando
--- NOTE | 2018-04-10 14:24 | PN_ITS ---
Patient Problems: Active and Suspected Problems Small bowel obstruction (Acute) Subjective: The patient was admitted yesterday with diffuse abdominal pain for 2 days. Patient also noted nausea, but no vomiting, no BM for last 2 days with abdominal distention and worsening abdominal pain. Patient had perforated duodenal ulcer for which she required rhinoplasty at [facility] on March 2015. CT abdomen images reviewed of 04/09 and 04/10 shows a small bowel obstruction with transition point in the mid pelvis. CT abdomen of 04/10 shows increasing free fluid in the right side of abdomen and pelvis suggesting possible tiny perforation. Clinical Impression(s) from Imaging Studies Abdomen/Pelvis CT 04/09/18 15:51 IMPRESSION: 1. High-grade small bowel obstruction with transition in the mid pelvis. No evidence of perforation. 2. Mild free fluid. N.B. : The above information has been verbally conveyed by Rosanna Hunt MD to Román Benjamin MD, on 04/09/2018 18:55:48 (ET). Electronically Signed: Rosanna Hunt MD at 18:50 EDT Tel , Service support , ADDENDUM: 04/09/18 1904 KUB X-Ray 04/09/18 19:05 IMPRESSION: 1. NG tube terminates in the stomach. 2. Dilated small bowel consistent with previously demonstrated obstruction. Electronically Signed: Rosanna Hunt MD at 20:17 EDT Tel , Service support , Abdomen/Pelvis CT 04/10/18 05:00 IMPRESSION: 1. Dilated small bowel within the right side of the abdomen suggesting possible closed loop obstruction. The proximal small bowel is not dilated. 2. Increasing free fluid is visible in the right side of the abdomen and pelvis suggesting possible tiny perforation. El Vitals/I&O's: Vital Signs Temp Pulse Resp BP Pulse Ox 98.0 F 119 H 18 128/82 H 95 04/10/18 11:24 04/10/18 11:24 04/10/18 11:24 04/10/18 11:24 04/10/18 11:24 Oxygen Delivery Method Room Air Weight: 139 lb 5.314 oz Body Mass Index (BMI) 23.1 Intake and Output for Last 24 Hours 04/08/18 04/09/18 04/10/18 23:59 23:59 23:59 Intake Total 2522 Output Total 500 / 500 Balance 2022 General: Alert, Oriented x3, Cooperative HEENT: Atraumatic, PERRLA, EOMI, Normocephalic Oral: - - NG tube present. About 600 mL NG tube bilious in nature since 12 AM today Neck: Supple, No JVD, Negative Carotid Bruits Lungs: Clear to auscultation, No rhonchi, No wheeze, No rales, Diminished - Entry diminished in bilateral lung bases Cardiovascular: Regular rate, Regular Rhythm, Normal S1, Normal S2, No murmurs Abdomen: Soft, Hypoactive Bowel Sounds, Distended - Diffuse distention of abdomen, Guarding, Tender - Diffuse tenderness present. Moderate guarding but no rigidity Extremities: No edema, Capillary Refill Less than 3 Seconds Skin: No rashes, No breakdown Musculoskeletal: No Tenderness to Palpation of Joints or Extremities Neurological: Cranial nerves II-XII grossly intact, Neuro grossly intact, - Psych/Mental Status: Normal Affect, Appropriate, - - History of heroin and cocaine use Laboratory Results 04/09/18 17:05: WBC 7.1, RBC 4.91, Hgb 14.7, Hct 45.6, MCV 92.9, MCH 29.9, MCHC 32.2, RDW 13.1, RDW Differential 44.5 H, Plt Count 184, MPV 9.8, Immature Gran % (Auto) 0.000, Neut % (Auto) 82.0 H, Lymph % (Auto) 8.3 L, [place] % (Auto) 8.4, Eos % (Auto) 1.0, Baso % (Auto) 0.3, Absolute Neuts (auto) 5.9, Absolute Lymphs (auto) 0.59 L, Total Counted Not Reportable, Differential Comment SCANNED 04/09/18 17:05: Sodium 139, Potassium 3.9, Chloride 104, Carbon Dioxide 29.0, Anion Gap 6, BUN 21 H, Creatinine 0.78, Estim Creat Clear Calc 89.72, Est GFR (MDRD) Af Amer 108, Est GFR (MDRD) Non-Af 89, BUN/Creatinine Ratio 27.0 H, Glucose 82, Calcium 8.9, Total Bilirubin 0.40, AST 71 H, ALT 136 H, Alkaline Phosphatase 80, Total Protein 7.5, Albumin 3.5, Globulin 4.0, Albumin/Globulin Ratio 0.9, Lipase 79 04/09/18 17:05: Serum , Qual NEGATIVE 04/09/18 17:05: PT 12.2, INR 0.9, APTT 31.0 04/09/18 17:05: HIV 1&2 Antibody Non-Reactive 04/09/18 17:25: Lactic Acid 0.7 04/10/18 05:07: Urine Opiates Screen POSITIVE H, Urine Methadone Screen NEGATIVE, Ur Barbiturates Screen NEGATIVE, Ur Phencyclidine Scrn NEGATIVE, Ur Amphetamines Screen POSITIVE H, U Methamphetamin-MDMA POSITIVE H, U Benzodiazepines Scrn NEGATIVE, Urine Cocaine Screen NEGATIVE, U Cannabinoids Screen POSITIVE H, Ur Drug Screen Comment 04/10/18 05:24: WBC 7.0, RBC 4.70, Hgb 14.1, Hct 44.7, MCV 95.1, MCH 30.0, MCHC 31.5 L, RDW 13.0, RDW Differential 44.0 H, Plt Count 202, MPV 9.8, Immature Gran % (Auto) 0.100, Neut % (Auto) 69.3, Lymph % (Auto) 15.6 L, [place] % (Auto) 12.8 H, Eos % (Auto) 1.9, Baso % (Auto) 0.3, Absolute Neuts (auto) 4.8, Absolute Lymphs (auto) 1.09, Total Counted Not Reportable 04/10/18 05:24: Sodium 139, Potassium 3.9, Chloride 106, Carbon Dioxide 26.0, Anion Gap 7, BUN 21 H, Creatinine 0.75, Estim Creat Clear Calc 93.31, Est GFR (MDRD) Af Amer 111, Est GFR (MDRD) Non-Af 92, BUN/Creatinine Ratio 27.9 H, Glucose 59 L, Calcium 8.4 L 04/10/18 05:24: Hepatitis A IgM Ab Pending, Hepatitis A Ab Total Pending, Hep Bs Antigen Pending, Hep B Core Total Ab Pending, Hep B Core IgM Ab Pending 04/10/18 05:57: Urine Test Negative 04/10/18 06:28: Lactic Acid 0.6 Current Medications Enoxaparin Sodium (Lovenox) 40 mg SC DAILY@1000 JITENDRA Last Admin: 04/10/18 09:34 Dose: Not Given Hydromorphone HCl (Dilaudid Inj) 1 mg IV Q3H PRN PRN PRN Reason: SEVERE PAIN (6-10/10) Last Admin: 04/10/18 10:22 Dose: 1 mg Sodium Chloride () 1,000 mls @ 125 mls/hr IV .Q8H JITENDRA Last Admin: 04/10/18 10:22 Dose: 125 mls/hr Pantoprazole Sodium 40 mg/ (Sodium Chloride) 110 mls @ 330 mls/hr IV Q12 [facility] Last Admin: 04/10/18 09:35 Dose: 330 mls/hr Magnesium Hydroxide (Milk Of Magnesia) 30 ml PO DAILY PRN PRN PRN Reason: Constipation Nicotine (Nicoderm Cq (Pbkc)) 21 mg TRANSDERM. DAILY [facility] Last Admin: 04/09/18 22:51 Dose: 21 mg Ondansetron HCl (Zofran) 4 mg IV Q8H PRN PRN PRN Reason: NAUSEA Last Admin: 04/10/18 03:16 Dose: 4 mg Promethazine HCl (Phenergan) 12.5 mg IV Q6H PRN PRN PRN Reason: NAUSEA/VOMITING Sodium Chloride () 5 - 30 ml IV UD PRN PRN Reason: SALINE FLUSH Last Admin: 04/10/18 03:18 Dose: 10 ml Medical Necessity - Tobacco Use Smoking Status: Current every day smoker Tobacco Use: Cigarettes Assessment/Plan All Active Problems Small bowel obstruction (Acute) The patient is a 37 y/o F with history of Perforated Duodenal Ulcer s/p duodenoplasty 03/2015 at [facility], Tobacco use, Hx of IV drug abuse including heroin but sober for for approximately 1-2 years, ongoing methamphetamine usage smoked and snorted, cannabis usage daily, alcohol abuse daily was admitted on 04/09/18 with history of progressively worsening abdominal pain, distention, nausea without emesis and and no bowel movement for 2 days. NG tube inserted and bilious aspiration done CT abdomen images reviewed of 04/09 and 04/10 shows a small bowel obstruction with transition point in the mid pelvis. CT abdomen of 04/10 shows increasing free fluid in the right side of abdomen and pelvis suggesting possible tiny perforation. The patient was seen by surgeon, Dr. Beck Bermeo and recommended open laparotomy rather laparoscopy in view of previous surgery. 1. High-grade small bowel obstruction with transition point in the mid pelvis with free fluid in the right side of abdomen and pelvis suggesting possible tiny perforation: [facility] Continue and use suction. On IV fluid. N.p.o. Patient agreed for surgery and is scheduled for laparotomy. Patient is moderate risk in view of substance use history along with smoking marijuana and alcohol use although she is 37 years old. 2. Polysubstance use with history of heroin IVDA use, methamphetamine, marijuana smoking and snorting: U tox is positive of methamphetamine, amphetamines, opioids, and cannabinoids. Although, patient denies use of pain medication but I think she is probably taking it as opioids are positive. Patient will need [facility] consult for rehab 3. Chronic alcohol use with elevated transaminases, probably chronic hepatitis secondary to polysubstance use/possible chronic hepatitis C: LFT shows elevated ALT 136, AST is 71 but normal alkaline phosphatase and total bili. Lactic acid normal. Viral hepatitis is already been ordered but I do not see hepatitis C ordered. HIV negative. Further evaluation and management as an outpatient. 4. Chronic smoking cigarettes and marijuana smoking and snorting: Encourage cessation. Inpatient counseling done. 5. History of perforated duodenal ulcer status post duodenoplasty. DVT prophylaxis: On SCDs. Lovenox on hold for OR. Code Visit Inpatient E&M: 28143 Subs Hosp L3
[2018-04-10] MEDS: Bupivacaine Mpf 0.5% 30 ML VIAL (14:25)
[2018-04-10] MEDS: Lactated Ringers 1,000 ML 100 ML IV (20:25)
[2018-04-11] VITALS (7 sets, daily range): BP systolic 120–133; BP diastolic 79–95; PULSE 70–99; RESP 14–16; TEMP 36.6–37.2; O2SAT 96–99
[2018-04-11] MEDS: HYDROmorphone 1 MG/ML Syringe IV ×5 (01:25→20:58)
--- NOTE | 2018-04-11 05:45 | PN.SURG_ITS ---
Patient Problems: Active and Suspected Problems Small bowel obstruction (Acute) Objective: Pt c/o ngt pain, no flatus - Physical Exam General: Alert, Oriented x3, Cooperative Abdomen: Bowel Sounds Not Present, Distended - tight, Tender Vital Signs Temp Pulse Resp BP Pulse Ox 98.1 F 99 16 130/79 H 99 04/11/18 01:38 04/11/18 01:38 04/11/18 01:38 04/11/18 01:38 04/11/18 01:38 Oxygen Delivery Method Room Air Weight: 139 lb 5.314 oz Body Mass Index (BMI) 23.1 Intake and Output for Last 24 Hours 04/09/18 04/10/18 04/11/18 23:59 23:59 23:59 Intake Total 4085 / 4085 779 / 779 Output Total 510 / 510 600 / 600 Balance 3575 / 3575 179 / 179 Laboratory Tests Past 24 Hrs 04/10/18 04/10/18 04/10/18 05:24 05:24 05:57 WBC 7.0 RBC 4.70 Hgb 14.1 Hct 44.7 MCV 95.1 MCH 30.0 MCHC 31.5 L RDW 13.0 RDW Differential 44.0 H Plt Count 202 MPV 9.8 Immature Gran % (Auto) 0.100 Neut % (Auto) 69.3 Lymph % (Auto) 15.6 L [place] % (Auto) 12.8 H Eos % (Auto) 1.9 Baso % (Auto) 0.3 Absolute Neuts (auto) 4.8 Absolute Lymphs (auto) 1.09 Total Counted Not Reportable Sodium 139 Potassium 3.9 Chloride 106 Carbon Dioxide 26.0 Anion Gap 7 BUN 21 H Creatinine 0.75 Estim Creat Clear Calc 93.31 Est GFR (MDRD) Af Amer 111 Est GFR (MDRD) Non-Af 92 BUN/Creatinine Ratio 27.9 H Glucose 59 L Lactic Acid Calcium 8.4 L Urine Test Negative 04/10/18 06:28 WBC RBC Hgb Hct MCV MCH MCHC RDW RDW Differential Plt Count MPV Immature Gran % (Auto) Neut % (Auto) Lymph % (Auto) [place] % (Auto) Eos % (Auto) Baso % (Auto) Absolute Neuts (auto) Absolute Lymphs (auto) Total Counted Sodium Potassium Chloride Carbon Dioxide Anion Gap BUN Creatinine Estim Creat Clear Calc Est GFR (MDRD) Af Amer Est GFR (MDRD) Non-Af BUN/Creatinine Ratio Glucose Lactic Acid 0.6 Calcium Urine Test Medical Necessity - Tobacco Use Smoking Status: Current every day smoker Tobacco Use: Cigarettes Assessment/Plan All Active Problems Small bowel obstruction (Acute) very extensive adhesions. I anticipate a prolonged resolution
[2018-04-11] MEDS: Lactated Ringers 1,000 ML 100 ML IV ×2 (05:59→15:11)
[2018-04-11 06:59] LABS: Absolute Lymphocyte Count 0.92 X10^3/ul (0.83-4.51); Absolute Neutrophil Count 6.5 X10^3/uL (2.0-7.7); Basophil# 0.02 X10^3/uL; Basophil% 0.2 % (0-1); Eosinophil# 0.06 X10^3/uL; Eosinophils% 0.7 % (0-5); Hematocrit 40.7 % (37-47); Hemoglobin 12.9 g/dl (12.0-15.0); Lymphocyte # 0.92 X10^3/ul (4.0); Lymphocyte % 10.4 % (19-41); Mean Corp Hgb Conc 31.7 g/gl (32-36); Mean Corpuscular Hgb 29.9 pg (27.0-32.0); Mean Corpuscular Volume 94.2 fL (81-99); Mean Platelet Vol. 9.7 fl (6.2-12.0); Monocyte# 1.37 X10^3/uL; Monocyte% 15.4 % (0-10); Neutrophil # 6.48 X10^3/uL (2.7-7.7); Neutrophil % 73.1 % (47-70); Platelet Count 218 K/mm3 (150-450); RBC Distribution Width SD 43.8 fl (35.1-43.9); Red Blood Count 4.32 M/mm3 (4.2-5.4); White Blood Count 8.9 K/mm3 (4.4-11.0)
[2018-04-11 07:02] LABS: POSITIVE COUNT NO; POSITIVE DIFFERENTIAL NO; POSITIVE MORPHOLOGY NO
[2018-04-11 07:09] LABS: Anion Gap 9 (5-15); BUN 14 mg/dL (7-18); BUN/Creat Ratio 18.4 RATIO (10-20); Calcium,Total 7.6 mg/dL (8.5-10.1); Chloride 103 mmol/L (98-107); Creatinine, Serum 0.76 mg/dL (0.55-1.02); EST Glomerular Filtration Rate 91 mL/min (>60); Est Glom Filt Rate - Afr Amer 111 mL/min (>60); Estimated Creatinine Clearance 92.08 ml/min; Glucose 74 mg/dL (74-106); Sodium Level 136 mmol/L (136-145)
[2018-04-11] MEDS: Enoxaparin 40 MG/0.4 ML Syringe SC (09:31)
[2018-04-11] MEDS: BENZOCAINE/MENTHOL 1 LOZENGE 2 LOZENGE MUCOUS MEM ×3 (09:40→20:58)
[2018-04-11] MEDS: 0.9% NaCl Peripheral Flush Adult/Peds IV ×2 (09:42→14:39)
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
--- NOTE | 2018-04-11 13:41 | CPS ---
Patient refused I.S. multiple times
[2018-04-11 15:05] LABS: HEPATITIS B SURFACE AG Confirm. indicated (Negative); Hepatitis A AB, Total Negative (Negative); Hepatitis A IgM Antibody Negative (Negative); Hepatitis B Core AB IgM Negative (Negative); Hepatitis B Core Ab Total Negative (Negative)
--- NOTE | 2018-04-11 16:55 | PCM.PN.HOSP ---
Patient Problems: Active and Suspected Problems Small bowel obstruction (Acute) Subjective: The patient had exploratory laparotomy with extensive adhesiolysis and ventricle incisional herniorrhaphy yesterday. Patient tolerated procedure well. Patient did not had fever or chills. Heart rate 70s-80s. No hypoxia. Vitals/I&O's: Vital Signs Temp Pulse Resp BP Pulse Ox 98.9 F 89 14 132/92 H 97 04/11/18 14:07 04/11/18 14:07 04/11/18 14:07 04/11/18 14:07 04/11/18 14:07 Oxygen Delivery Method Room Air Weight: 139 lb 5.314 oz Body Mass Index (BMI) 23.1 Intake and Output for Last 24 Hours 04/09/18 04/10/18 04/11/18 23:59 23:59 23:59 Intake Total 4085 / 4085 3533 / 3533 Output Total 510 / 510 1650 / 1650 Balance 3575 / 3575 1883 / 1883 General: Alert, Oriented x3, Cooperative HEENT: Atraumatic, PERRLA, EOMI, Normocephalic Oral: - - NG tube in place. Had 250 mL gastric and bilious drainage since midnight. 1350 mL and output. About 1800 mL positive balance. Neck: Supple, No JVD, Negative Carotid Bruits Lungs: Clear to auscultation, No rhonchi, No wheeze, No rales, Diminished - Air entry diminished bilaterally probably secondary to decreased ventilatory effort Cardiovascular: Regular rate, Normal S1, Normal S2, No murmurs Abdomen: Bowel Sounds Present, Soft, Hypoactive Bowel Sounds, Distended - Mild distention, Tender - Mild diffuse tenderness present, postsurgical Extremities: No edema, Capillary Refill Less than 3 Seconds Skin: No rashes, No breakdown Musculoskeletal: No Tenderness to Palpation of Joints or Extremities Neurological: Cranial nerves II-XII grossly intact, Neuro grossly intact, Motor Exam 5/5 strength throughout Psych/Mental Status: Normal Affect, Appropriate Laboratory Results 04/11/18 06:32: Hepatitis C Ab (EIA) Pending 04/11/18 06:32: WBC 8.9, RBC 4.32, Hgb 12.9, Hct 40.7, MCV 94.2, MCH 29.9, MCHC 31.7 L, RDW 13.0, RDW Differential 43.8, Plt Count 218, MPV 9.7, Immature Gran % (Auto) 0.200, Neut % (Auto) 73.1 H, Lymph % (Auto) 10.4 L, [place] % (Auto) 15.4 H, Eos % (Auto) 0.7, Baso % (Auto) 0.2, Absolute Neuts (auto) 6.5, Absolute Lymphs (auto) 0.92, Total Counted Not Reportable 04/11/18 06:32: Sodium 136, Potassium 4.0, Chloride 103, Carbon Dioxide 24.0, Anion Gap 9, BUN 14, Creatinine 0.76, Estim Creat Clear Calc 92.08, Est GFR (MDRD) Af Amer 111, Est GFR (MDRD) Non-Af 91, BUN/Creatinine Ratio 18.4, Glucose 74, Calcium 7.6 L Current Medications Hydrocodone Bitart/Acetaminophen ([place] 5mg-325mg) 1 - 2 tablet PO Q4H PRN PRN PRN Reason: PAIN Enoxaparin Sodium (Lovenox) 40 mg SC DAILY@1000 [facility] Last Admin: 04/11/18 09:31 Dose: 40 mg Hydromorphone HCl (Dilaudid Inj) 1 mg IV Q3H PRN PRN PRN Reason: SEVERE PAIN (-03/26) Last Admin: 04/11/18 14:39 Dose: 1 mg Pantoprazole Sodium 40 mg/ (Sodium Chloride) 110 mls @ 330 mls/hr IV Q12 [facility] Last Admin: 04/11/18 09:30 Dose: 330 mls/hr Lactated Ringer's () 1,000 mls @ 100 mls/hr IV .Q10H [facility] Last Admin: 04/11/18 15:11 Dose: 100 mls/hr Magnesium Hydroxide (Milk Of Magnesia) 30 ml PO DAILY PRN PRN PRN Reason: Constipation Nicotine (Nicoderm Cq (Pbkc)) 21 mg TRANSDERM. DAILY [facility] Last Admin: 04/11/18 09:31 Dose: 21 mg Ondansetron HCl (Zofran) 4 mg IV Q8H PRN PRN PRN Reason: NAUSEA Last Admin: 04/10/18 03:16 Dose: 4 mg Promethazine HCl (Phenergan) 12.5 mg IV Q6H PRN PRN PRN Reason: NAUSEA/VOMITING Sodium Chloride () 5 - 30 ml IV UD PRN PRN Reason: SALINE FLUSH Last Admin: 04/11/18 14:39 Dose: 10 ml Throat Lozenges (Cepacol Sore Throat Lozenge) 2 lozenge MUCOUS MEM Q2H PRN PRN PRN Reason: SORE THROAT Last Admin: 04/11/18 16:30 Dose: 2 lozenge Medical Necessity - Tobacco Use Smoking Status: Current every day smoker Tobacco Use: Cigarettes Assessment/Plan All Active Problems Small bowel obstruction (Acute) The patient is a 37 y/o F with history of Perforated Duodenal Ulcer s/p duodenoplasty 03/2015 at [facility], Tobacco use, Hx of IV drug abuse including heroin but sober for for approximately 1-2 years, ongoing methamphetamine usage smoked and snorted, cannabis usage daily, alcohol abuse daily was admitted on 04/09/18 with history of progressively worsening abdominal pain, distention, nausea without emesis and and no bowel movement for 2 days. NG tube inserted and bilious aspiration done CT abdomen images reviewed of 04/09 and 04/10 shows a small bowel obstruction with transition point in the mid pelvis. CT abdomen of 04/10 shows increasing free fluid in the right side of abdomen and pelvis suggesting possible tiny perforation. The patient was seen by surgeon, Dr. Beck Bermeo and recommended open laparotomy rather laparoscopy in view of previous surgery. 1. High-grade small bowel obstruction secondary to adhesions: Postop day 1. Laparotomy with adhesiolysis and ventral incisional herniorrhaphy. Had extensive adhesiolysis: The patient is being admitted on Medr floor. Continue NG suction. N.p.o. prolonged resolution is expected as per surgeon. Continue IV fluid Ringer lactate. On Protonix, supportive treatment with Zofran and Phenergan. 2. Polysubstance use with history of heroin IVDA use, methamphetamine, marijuana smoking and snorting: U tox is positive of methamphetamine, amphetamines, opioids, and cannabinoids. Although, patient denies use of pain medication but I think she is probably taking it as opioids are positive. Patient will need [facility] consult for rehab 3. Chronic alcohol use with elevated transaminases, probably chronic hepatitis secondary to polysubstance use/possible chronic hepatitis C: LFT shows elevated ALT 136, AST is 71 but normal alkaline phosphatase and total bili. Lactic acid normal. Viral hepatitis is already been ordered, results pending HIV negative. Further evaluation and management as an outpatient. 4. Chronic smoking cigarettes and marijuana smoking and snorting: Encourage cessation. Inpatient counseling done. 5. History of perforated duodenal ulcer status post duodenoplasty. DVT prophylaxis: On SCDs. Lovenox for DVT prophylaxis Active Medications Hydrocodone Bitart/Acetaminophen ([place] 5mg-325mg) 1 - 2 tablet PO Q4H PRN PRN PRN Reason: PAIN Enoxaparin Sodium (Lovenox) 40 mg SC DAILY@1000 [facility] Last Admin: 04/11/18 09:31 Dose: 40 mg Hydromorphone HCl (Dilaudid Inj) 1 mg IV Q3H PRN PRN PRN Reason: SEVERE PAIN (6-03/26) Last Admin: 04/11/18 14:39 Dose: 1 mg Pantoprazole Sodium 40 mg/ (Sodium Chloride) 110 mls @ 330 mls/hr IV Q12 [facility] Last Admin: 04/11/18 09:30 Dose: 330 mls/hr Lactated Ringer's () 1,000 mls @ 100 mls/hr IV .Q10H [facility] Last Admin: 04/11/18 15:11 Dose: 100 mls/hr Magnesium Hydroxide (Milk Of Magnesia) 30 ml PO DAILY PRN PRN PRN Reason: Constipation Nicotine (Nicoderm Cq (Pbkc)) 21 mg TRANSDERM. DAILY [facility] Last Admin: 04/11/18 09:31 Dose: 21 mg Ondansetron HCl (Zofran) 4 mg IV Q8H PRN PRN PRN Reason: NAUSEA Last Admin: 04/10/18 03:16 Dose: 4 mg Promethazine HCl (Phenergan) 12.5 mg IV Q6H PRN PRN PRN Reason: NAUSEA/VOMITING Sodium Chloride () 5 - 30 ml IV UD PRN PRN Reason: SALINE FLUSH Last Admin: 04/11/18 14:39 Dose: 10 ml Throat Lozenges (Cepacol Sore Throat Lozenge) 2 lozenge MUCOUS MEM Q2H PRN PRN PRN Reason: SORE THROAT Last Admin: 04/11/18 16:30 Dose: 2 lozenge Code Visit Inpatient E&M: 39550 [facility] H[facility] L3
--- NOTE | 2018-04-11 16:59 | PN_ITS ---
Patient Problems: Active and Suspected Problems Small bowel obstruction (Acute) Subjective: The patient had exploratory laparotomy with extensive adhesiolysis and ventricle incisional herniorrhaphy yesterday. Patient tolerated procedure well. Patient did not had fever or chills. Heart rate 70s-80s. No hypoxia. Vitals/I&O's: Vital Signs Temp Pulse Resp BP Pulse Ox 98.9 F 89 14 132/92 H 97 04/11/18 14:07 04/11/18 14:07 04/11/18 14:07 04/11/18 14:07 04/11/18 14:07 Oxygen Delivery Method Room Air Weight: 139 lb 5.314 oz Body Mass Index (BMI) 23.1 Intake and Output for Last 24 Hours 04/09/18 04/10/18 04/11/18 23:59 23:59 23:59 Intake Total 4085 / 4085 3533 / 3533 Output Total 510 / 510 1650 / 1650 Balance 3575 / 3575 1883 / 1883 General: Alert, Oriented x3, Cooperative HEENT: Atraumatic, PERRLA, EOMI, Normocephalic Oral: - - NG tube in place. Had 250 mL gastric and bilious drainage since midnight. 1350 mL and output. About 1800 mL positive balance. Neck: Supple, No JVD, Negative Carotid Bruits Lungs: Clear to auscultation, No rhonchi, No wheeze, No rales, Diminished - Air entry diminished bilaterally probably secondary to decreased ventilatory effort Cardiovascular: Regular rate, Normal S1, Normal S2, No murmurs Abdomen: Bowel Sounds Present, Soft, Hypoactive Bowel Sounds, Distended - Mild distention, Tender - Mild diffuse tenderness present, postsurgical Extremities: No edema, Capillary Refill Less than 3 Seconds Skin: No rashes, No breakdown Musculoskeletal: No Tenderness to Palpation of Joints or Extremities Neurological: Cranial nerves II-XII grossly intact, Neuro grossly intact, Motor Exam 5/5 strength throughout Psych/Mental Status: Normal Affect, Appropriate Laboratory Results 04/11/18 06:32: Hepatitis C Ab (EIA) Pending 04/11/18 06:32: WBC 8.9, RBC 4.32, Hgb 12.9, Hct 40.7, MCV 94.2, MCH 29.9, MCHC 31.7 L, RDW 13.0, RDW Differential 43.8, Plt Count 218, MPV 9.7, Immature Gran % (Auto) 0.200, Neut % (Auto) 73.1 H, Lymph % (Auto) 10.4 L, [place] % (Auto) 15.4 H, Eos % (Auto) 0.7, Baso % (Auto) 0.2, Absolute Neuts (auto) 6.5, Absolute Lymphs (auto) 0.92, Total Counted Not Reportable 04/11/18 06:32: Sodium 136, Potassium 4.0, Chloride 103, Carbon Dioxide 24.0, Anion Gap 9, BUN 14, Creatinine 0.76, Estim Creat Clear Calc 92.08, Est GFR (MDRD) Af Amer 111, Est GFR (MDRD) Non-Af 91, BUN/Creatinine Ratio 18.4, Glucose 74, Calcium 7.6 L Current Medications Hydrocodone Bitart/Acetaminophen ([place] 5mg-325mg) 1 - 2 tablet PO Q4H PRN PRN PRN Reason: PAIN Enoxaparin Sodium (Lovenox) 40 mg SC DAILY@1000 [facility] Last Admin: 04/11/18 09:31 Dose: 40 mg Hydromorphone HCl (Dilaudid Inj) 1 mg IV Q3H PRN PRN PRN Reason: SEVERE PAIN (-03/26) Last Admin: 04/11/18 14:39 Dose: 1 mg Pantoprazole Sodium 40 mg/ (Sodium Chloride) 110 mls @ 330 mls/hr IV Q12 [facility] Last Admin: 04/11/18 09:30 Dose: 330 mls/hr Lactated Ringer's () 1,000 mls @ 100 mls/hr IV .Q10H [facility] Last Admin: 04/11/18 15:11 Dose: 100 mls/hr Magnesium Hydroxide (Milk Of Magnesia) 30 ml PO DAILY PRN PRN PRN Reason: Constipation Nicotine (Nicoderm Cq (Pbkc)) 21 mg TRANSDERM. DAILY [facility] Last Admin: 04/11/18 09:31 Dose: 21 mg Ondansetron HCl (Zofran) 4 mg IV Q8H PRN PRN PRN Reason: NAUSEA Last Admin: 04/10/18 03:16 Dose: 4 mg Promethazine HCl (Phenergan) 12.5 mg IV Q6H PRN PRN PRN Reason: NAUSEA/VOMITING Sodium Chloride () 5 - 30 ml IV UD PRN PRN Reason: SALINE FLUSH Last Admin: 04/11/18 14:39 Dose: 10 ml Throat Lozenges (Cepacol Sore Throat Lozenge) 2 lozenge MUCOUS MEM Q2H PRN PRN PRN Reason: SORE THROAT Last Admin: 04/11/18 16:30 Dose: 2 lozenge Medical Necessity - Tobacco Use Smoking Status: Current every day smoker Tobacco Use: Cigarettes Assessment/Plan All Active Problems Small bowel obstruction (Acute) The patient is a 37 y/o F with history of Perforated Duodenal Ulcer s/p d uodenoplasty 03/2015 at [facility], Tobacco use, Hx of IV drug abuse including heroin but sober for for approximately 1-2 years, ongoing methamphetamine usage smoked and snorted, cannabis usage daily, alcohol abuse daily was admitted on 04/09/18 with history of progressively worsening abdominal pain, distention, nausea without emesis and and no bowel movement for 2 days. NG tube inserted and bilious aspiration done CT abdomen images reviewed of 04/09 and 04/10 shows a small bowel obstruction with transition point in the mid pelvis. CT abdomen of 04/10 shows increasing free fluid in the right side of abdomen and pelvis suggesting possible tiny perforation. The patient was seen by surgeon, Dr. Beck Bermeo and recommended open laparotomy rather laparoscopy in view of previous surgery. 1. High-grade small bowel obstruction secondary to adhesions: Postop day 1. Laparotomy with adhesiolysis and ventral incisional herniorrhaphy. Had extensive adhesiolysis: The patient is being admitted on MedSur floor. Continue NG suction. N.p.o. prolonged resolution is expected as per surgeon. Continue IV fluid Ringer lactate. On Protonix, supportive treatment with Zofran and Phenergan. 2. Polysubstance use with history of heroin IVDA use, methamphetamine, marijuana smoking and snorting: U tox is positive of methamphetamine, amphetamines, opioids, and cannabinoids. Although, patient denies use of pain medication but I think she is probably taking it as opioids are positive. Patient will need [facility] consult for rehab 3. Chronic alcohol use with elevated transaminases, probably chronic hepatitis secondary to polysubstance use/possible chronic hepatitis C: LFT shows elevated ALT 136, AST is 71 but normal alkaline phosphatase and total bili. Lactic acid normal. Viral hepatitis is already been ordered, results pending HIV negative. Further evaluation and management as an outpatient. 4. Chronic smoking cigarettes and marijuana smoking and snorting: Encourage cessation. Inpatient counseling done. 5. History of perforated duodenal ulcer status post duodenoplasty. DVT prophylaxis: On SCDs. Lovenox for DVT prophylaxis Active Medications Hydrocodone Bitart/Acetaminophen ([place] 5mg-325mg) 1 - 2 tablet PO Q4H PRN PRN PRN Reason: PAIN Enoxaparin Sodium (Lovenox) 40 mg SC DAILY@1000 [facility] Last Admin: 04/11/18 09:31 Dose: 40 mg Hydromorphone HCl (Dilaudid Inj) 1 mg IV Q3H PRN PRN PRN Reason: SEVERE PAIN (6-03/26) Last Admin: 04/11/18 14:39 Dose: 1 mg Pantoprazole Sodium 40 mg/ (Sodium Chloride) 110 mls @ 330 mls/hr IV Q12 [facility] Last Admin: 04/11/18 09:30 Dose: 330 mls/hr Lactated Ringer's () 1,000 mls @ 100 mls/hr IV .Q10H [facility] Last Admin: 04/11/18 15:11 Dose: 100 mls/hr Magnesium Hydroxide (Milk Of Magnesia) 30 ml PO DAILY PRN PRN PRN Reason: Constipation Nicotine (Nicoderm Cq (Pbkc)) 21 mg TRANSDERM. DAILY [facility] Last Admin: 04/11/18 09:31 Dose: 21 mg Ondansetron HCl (Zofran) 4 mg IV Q8H PRN PRN PRN Reason: NAUSEA Last Admin: 04/10/18 03:16 Dose: 4 mg Promethazine HCl (Phenergan) 12.5 mg IV Q6H PRN PRN PRN Reason: NAUSEA/VOMITING Sodium Chloride () 5 - 30 ml IV UD PRN PRN Reason: SALINE FLUSH Last Admin: 04/11/18 14:39 Dose: 10 ml Throat Lozenges (Cepacol Sore Throat Lozenge) 2 lozenge MUCOUS MEM Q2H PRN PRN PRN Reason: SORE THROAT Last Admin: 04/11/18 16:30 Dose: 2 lozenge Code Visit Inpatient E&M: [id number] [facility] Hosp L3
[2018-04-11] MEDS: Oxymetazoline 0.05% 1 SPRAY SPRAY.BTL NASAL (20:59)
[2018-04-12] MEDS: HYDROmorphone 1 MG/ML Syringe IV ×2 (03:02→09:08)
[2018-04-12] MEDS: 0.9% NaCl Peripheral Flush Adult/Peds IV ×2 (03:02→09:08)
[2018-04-12 04:58] VITALS: RESP 15
[2018-04-12 05:32] LABS: Absolute Lymphocyte Count 1.17 X10^3/ul (0.83-4.51); Absolute Neutrophil Count 5.9 X10^3/uL (2.0-7.7); Basophil# 0.01 X10^3/uL; Basophil% 0.1 % (0-1); Eosinophil# 0.15 X10^3/uL; Eosinophils% 1.8 % (0-5); Hematocrit 40.5 % (37-47); Hemoglobin 13.1 g/dl (12.0-15.0); Lymphocyte # 1.17 X10^3/ul (4.0); Lymphocyte % 14.2 % (19-41); Mean Corp Hgb Conc 32.3 g/gl (32-36); Mean Corpuscular Hgb 29.8 pg (27.0-32.0); Mean Corpuscular Volume 92.3 fL (81-99); Mean Platelet Vol. 10.2 fl (6.2-12.0); Monocyte# 1.03 X10^3/uL; Monocyte% 12.5 % (0-10); Neutrophil # 5.86 X10^3/uL (2.7-7.7); Neutrophil % 71.2 % (47-70); Platelet Count 213 K/mm3 (150-450); RBC Distribution Width CV 12.8 % (11.6-14.6); RBC Distribution Width SD 43.1 fl (35.1-43.9); Red Blood Count 4.39 M/mm3 (4.2-5.4); White Blood Count 8.2 K/mm3 (4.4-11.0)
[2018-04-12 05:35] LABS: POSITIVE COUNT NO; POSITIVE DIFFERENTIAL NO; POSITIVE MORPHOLOGY NO
[2018-04-12 05:50] LABS: Anion Gap 8 (5-15); BUN 10 mg/dL (7-18); BUN/Creat Ratio 18.2 RATIO (10-20); Calcium,Total 8.2 mg/dL (8.5-10.1); Chloride 99 mmol/L (98-107); Creatinine, Serum 0.55 mg/dL (0.55-1.02); EST Glomerular Filtration Rate 133 mL/min (>60); Est Glom Filt Rate - Afr Amer 161 mL/min (>60); Estimated Creatinine Clearance 127.24 ml/min; Glucose 57 mg/dL (74-106); Magnesium 1.7 mg/dL (1.6-2.6); Sodium Level 133 mmol/L (136-145)
--- NOTE | 2018-04-12 08:18 | PCM.PN.SRG ---
Patient Problems: Active and Suspected Problems Small bowel obstruction (Acute) Subjective: Patient reports she is passing flatus. She had minimal output from her NG overnight. Her abdominal pain is improving. - Physical Exam General: Alert, Oriented x3, Cooperative Lungs: Normal air movement Cardiovascular: Regular rate, Regular Rhythm Abdomen: Soft, Tender - Mild tenderness more on the left side of her incision., - - Abdomen is very soft and mildly tender. Bowel sounds are present and she is only minimally distended. Vital Signs Temp Pulse Resp BP Pulse Ox 97.8 F 86 15 126/82 H 96 04/11/18 20:00 04/11/18 20:00 04/12/18 04:58 04/11/18 20:00 04/11/18 20:00 Oxygen Delivery Method Room Air Weight: 139 lb 5.314 oz Body Mass Index (BMI) 23.1 Intake and Output for Last 24 Hours 04/10/18 04/11/18 04/12/18 23:59 23:59 23:59 Intake Total 4085 / 4085 3808 / 3808 1225 / 1225 Output Total 510 / 510 2250 / 2250 400 / 400 Balance 3575 / 3575 1558 / 1558 825 / 825 Laboratory Tests Past 24 Hrs 04/12/18 04/12/18 05:10 05:10 WBC 8.2 RBC 4.39 Hgb 13.1 Hct 40.5 MCV 92.3 MCH 29.8 MCHC 32.3 RDW 12.8 RDW Differential 43.1 Plt Count 213 MPV 10.2 Immature Gran % (Auto) 0.200 Neut % (Auto) 71.2 H Lymph % (Auto) 14.2 L [place] % (Auto) 12.5 H Eos % (Auto) 1.8 Baso % (Auto) 0.1 Absolute Neuts (auto) 5.9 Absolute Lymphs (auto) 1.17 Total Counted Not Reportable Sodium 133 L Potassium 5.0 Chloride 99 Carbon Dioxide 26.0 Anion Gap 8 BUN 10 Creatinine 0.55 Estim Creat Clear Calc 127.24 Est GFR (MDRD) Af Amer 161 Est GFR (MDRD) Non-Af 133 BUN/Creatinine Ratio 18.2 Glucose 57 L Calcium 8.2 L Magnesium 1.7 Medical Necessity - Tobacco Use Smoking Status: Current every day smoker Tobacco Use: Cigarettes Assessment/Plan All Active Problems Small bowel obstruction (Acute) 37-year-old female status post laparotomy with lysis of adhesions 1. The patient reports she is passing flatus and her NG tube with minimal output overnight. About 150 cc overnight. She is having mild amount of abdominal pain just to the left of her incision. Her incision is clean dry and intact. Her NG contents appear clear/mucus. Patient is ambulating and was up walking around the room when I came in. 2. I will remove her NG and trial allow her to have light clear liquids. I explained that I do not want her to overdo it. If she is tolerating this I would advance her diet tomorrow and plan for DC. I explained that if we remove the NG today and things got worse she would need to have it replaced and the patient agrees. Michael Araujo MD Pager: [facility] [address] [place] [address], [address] [place] [address] Office:
--- NOTE | 2018-04-12 08:21 | PN.SURG_ITS ---
Patient Problems: Active and Suspected Problems Small bowel obstruction (Acute) Subjective: Patient reports she is passing flatus. She had minimal output from her NG overnight. Her abdominal pain is improving. - Physical Exam General: Alert, Oriented x3, Cooperative Lungs: Normal air movement Cardiovascular: Regular rate, Regular Rhythm Abdomen: Soft, Tender - Mild tenderness more on the left side of her incision., - - Abdomen is very soft and mildly tender. Bowel sounds are present and she is only minimally distended. Vital Signs Temp Pulse Resp BP Pulse Ox 97.8 F 86 15 126/82 H 96 04/11/18 20:00 04/11/18 20:00 04/12/18 04:58 04/11/18 20:00 04/11/18 20:00 Oxygen Delivery Method Room Air Weight: 139 lb 5.314 oz Body Mass Index (BMI) 23.1 Intake and Output for Last 24 Hours 04/10/18 04/11/18 04/12/18 23:59 23:59 23:59 Intake Total 4085 / 4085 3808 / 3808 1225 / 1225 Output Total 510 / 510 2250 / 2250 400 / 400 Balance 3575 / 3575 1558 / 1558 825 / 825 Laboratory Tests Past 24 Hrs 04/12/18 04/12/18 05:10 05:10 WBC 8.2 RBC 4.39 Hgb 13.1 Hct 40.5 MCV 92.3 MCH 29.8 MCHC 32.3 RDW 12.8 RDW Differential 43.1 Plt Count 213 MPV 10.2 Immature Gran % (Auto) 0.200 Neut % (Auto) 71.2 H Lymph % (Auto) 14.2 L [place] % (Auto) 12.5 H Eos % (Auto) 1.8 Baso % (Auto) 0.1 Absolute Neuts (auto) 5.9 Absolute Lymphs (auto) 1.17 Total Counted Not Reportable Sodium 133 L Potassium 5.0 Chloride 99 Carbon Dioxide 26.0 Anion Gap 8 BUN 10 Creatinine 0.55 Estim Creat Clear Calc 127.24 Est GFR (MDRD) Af Amer 161 Est GFR (MDRD) Non-Af 133 BUN/Creatinine Ratio 18.2 Glucose 57 L Calcium 8.2 L Magnesium 1.7 Medical Necessity - Tobacco Use Smoking Status: Current every day smoker Tobacco Use: Cigarettes Assessment/Plan All Active Problems Small bowel obstruction (Acute) 37-year-old female status post laparotomy with lysis of adhesions 1. The patient reports she is passing flatus and her NG tube with minimal output overnight. About 150 cc overnight. She is having mild amount of abdominal pain just to the left of her incision. Her incision is clean dry and intact. Her NG contents appear clear/mucus. Patient is ambulating and was up walking around the room when I came in. 2. I will remove her NG and trial allow her to have light clear liquids. I explained that I do not want her to overdo it. If she is tolerating this I would advance her diet tomorrow and plan for DC. I explained that if we remove the NG today and things got worse she would need to have it replaced and the patient agrees. Michael Araujo MD Pager: [facility] [address] [place] [address], [address] [place] [address] Office:
[2018-04-12 08:40] VITALS: BP 138/98; PULSE 93; RESP 18; TEMP 36.5; O2SAT 96
[2018-04-12] MEDS: BENZOCAINE/MENTHOL 1 LOZENGE 2 LOZENGE MUCOUS MEM ×3 (09:03→22:01)
[2018-04-12] MEDS: Oxymetazoline 0.05% 1 SPRAY SPRAY.BTL NASAL ×2 (09:12→21:54)
[2018-04-12] MEDS: Enoxaparin 40 MG/0.4 ML Syringe SC (09:12)
--- NOTE | 2018-04-12 09:35 | PCM.PN.HOSP ---
Patient Problems: Active and Suspected Problems Small bowel obstruction (Acute) Subjective: Patient was seen and examined. She admits to passing flatus, no bowel movements yet. No acute events overnight Vitals remained stable. NG tube removed this morning and started on clear liquid diet, tolerating it well. Vitals/I&O's: Vital Signs Temp Pulse Resp BP Pulse Ox 97.8 F 86 15 126/82 H 96 04/11/18 20:00 04/11/18 20:00 04/12/18 04:58 04/11/18 20:00 04/11/18 20:00 Oxygen Delivery Method Room Air Weight: 63.2 kg Body Mass Index (BMI) 23.1 Intake and Output for Last 24 Hours 04/10/18 04/11/18 04/12/18 23:59 23:59 23:59 Intake Total 4085 / 4085 3808 / 3808 1225 / 1225 Output Total 510 / 510 2250 / 2250 400 / 400 Balance 3575 / 3575 1558 / 1558 825 / 825 General: Alert, Oriented x3, Cooperative, No apparent distress HEENT: Atraumatic, PERRLA, EOMI, Normocephalic Oral: Moist Mucosa Neck: Supple, No JVD, Negative Carotid Bruits Lungs: Clear to auscultation, Normal air movement Cardiovascular: Regular rate, Regular Rhythm, Normal S1, Normal S2, No murmurs Abdomen: Bowel Sounds Present, Soft, Tender - Around the incisional site Extremities: Edema - Trace, - - Multiple healing bruises and scabs over the lower extremities from local traumas Skin: - - Tattoos, see extremity exam Musculoskeletal: No Tenderness to Palpation of Joints or Extremities Lymphatic: No Cervical, Supraclavicular, or Inguinal Adenopathy Neurological: Cranial nerves II-XII grossly intact, Neuro grossly intact Psych/Mental Status: Normal Affect, Appropriate Laboratory Results 04/12/18 05:10: WBC 8.2, RBC 4.39, Hgb 13.1, Hct 40.5, MCV 92.3, MCH 29.8, MCHC 32.3, RDW 12.8, RDW Differential 43.1, Plt Count 213, MPV 10.2, Immature Gran % (Auto) 0.200, Neut % (Auto) 71.2 H, Lymph % (Auto) 14.2 L, [place] % (Auto) 12.5 H, Eos % (Auto) 1.8, Baso % (Auto) 0.1, Absolute Neuts (auto) 5.9, Absolute Lymphs (auto) 1.17, Total Counted Not Reportable 04/12/18 05:10: Sodium 133 L, Potassium 5.0, Chloride 99, Carbon Dioxide 26.0, Anion Gap 8, BUN 10, Creatinine 0.55, Estim Creat Clear Calc 127.24, Est GFR (MDRD) Af Amer 161, Est GFR (MDRD) Non-Af 133, BUN/Creatinine Ratio 18.2, Glucose 57 L, Calcium 8.2 L, Magnesium 1.7 Current Medications Hydrocodone Bitart/Acetaminophen ([place] 5mg-325mg) 1 - 2 tablet PO Q4H PRN PRN PRN Reason: PAIN Enoxaparin Sodium (Lovenox) 40 mg SC DAILY@1000 JITENDRA Last Admin: 04/12/18 09:12 Dose: 40 mg Hydromorphone HCl (Dilaudid Inj) 1 mg IV Q3H PRN PRN PRN Reason: SEVERE PAIN (-03/26) Last Admin: 04/12/18 09:08 Dose: 1 mg Pantoprazole Sodium 40 mg/ (Sodium Chloride) 110 mls @ 330 mls/hr IV Q12 [facility] Last Admin: 04/12/18 09:06 Dose: 330 mls/hr Lactated Ringer's () 1,000 mls @ 100 mls/hr IV .Q10H [facility] Last Admin: 04/11/18 15:11 Dose: 100 mls/hr Magnesium Hydroxide (Milk Of Magnesia) 30 ml PO DAILY PRN PRN PRN Reason: Constipation Nicotine (Nicoderm Cq (Pbkc)) 21 mg TRANSDERM. DAILY [facility] Last Admin: 04/12/18 09:03 Dose: 21 mg Ondansetron HCl (Zofran) 4 mg IV Q8H PRN PRN PRN Reason: NAUSEA Last Admin: 04/10/18 03:16 Dose: 4 mg Oxymetazoline HCl (Afrin (Bkc)) 1 spray NASAL BID [facility] Last Admin: 04/12/18 09:12 Dose: 1 spray Promethazine HCl (Phenergan) 12.5 mg IV Q6H PRN PRN PRN Reason: NAUSEA/VOMITING Sodium Chloride () 5 - 30 ml IV UD PRN PRN Reason: SALINE FLUSH Last Admin: 04/12/18 09:08 Dose: 10 ml Throat Lozenges (Cepacol Sore Throat Lozenge) 2 lozenge MUCOUS MEM Q2H PRN PRN PRN Reason: SORE THROAT Last Admin: 04/12/18 09:03 Dose: 2 lozenge Medical Necessity - Tobacco Use Smoking Status: Current every day smoker Tobacco Use: Cigarettes Assessment/Plan All Active Problems Small bowel obstruction (Acute) 57-year-old female with past medical history of perforated duodenal ulcer status post duodenoplasty in 2015, polysubstance use comes in with worsening abdominal pain, nausea, constipation. CT of the abdomen had shown small bowel obstruction. Patient is status post exploratory laparotomy and extensive lysis of adhesions and ventral incisional herniorrhaphy. 1. Postop day #2 status post exploratory laparotomy, adhesiolysis and ventral incisional herniorrhaphy, pain is controlled, patient is doing well, status post NG tube removal, started on clear liquid diet, tolerating, we will follow-up per general surgery recommendations. 2. Polysubstance use, use of heroin, methamphetamine, marijuana, nicotine, alcohol, no signs of active withdrawal, advised to quit 3. Nicotine dependency, on nicotine patch 4. History of perforated duodenal ulcer status post repair, continue on PPI for now 5. DVT Prophylaxis with Lovenox subcu and early ambulation Code Visit Inpatient E&M: 97291 Subs Hosp L2
--- NOTE | 2018-04-12 09:39 | PN_ITS ---
Patient Problems: Active and Suspected Problems Small bowel obstruction (Acute) Subjective: Patient was seen and examined. She admits to passing flatus, no bowel movements yet. No acute events overnight Vitals remained stable. NG tube removed this morning and started on clear liquid diet, tolerating it well. Vitals/I&O's: Vital Signs Temp Pulse Resp BP Pulse Ox 97.8 F 86 15 126/82 H 96 04/11/18 20:00 04/11/18 20:00 04/12/18 04:58 04/11/18 20:00 04/11/18 20:00 Oxygen Delivery Method Room Air Weight: 63.2 kg Body Mass Index (BMI) 23.1 Intake and Output for Last 24 Hours 04/10/18 04/11/18 04/12/18 23:59 23:59 23:59 Intake Total 4085 / 4085 3808 / 3808 1225 / 1225 Output Total 510 / 510 2250 / 2250 400 / 400 Balance 3575 / 3575 1558 / 1558 825 / 825 General: Alert, Oriented x3, Cooperative, No apparent distress HEENT: Atraumatic, PERRLA, EOMI, Normocephalic Oral: Moist Mucosa Neck: Supple, No JVD, Negative Carotid Bruits Lungs: Clear to auscultation, Normal air movement Cardiovascular: Regular rate, Regular Rhythm, Normal S1, Normal S2, No murmurs Abdomen: Bowel Sounds Present, Soft, Tender - Around the incisional site Extremities: Edema - Trace, - - Multiple healing bruises and scabs over the lower extremities from local traumas Skin: - - Tattoos, see extremity exam Musculoskeletal: No Tenderness to Palpation of Joints or Extremities Lymphatic: No Cervical, Supraclavicular, or Inguinal Adenopathy Neurological: Cranial nerves II-XII grossly intact, Neuro grossly intact Psych/Mental Status: Normal Affect, Appropriate Laboratory Results 04/12/18 05:10: WBC 8.2, RBC 4.39, Hgb 13.1, Hct 40.5, MCV 92.3, MCH 29.8, MCHC 32.3, RDW 12.8, RDW Differential 43.1, Plt Count 213, MPV 10.2, Immature Gran % (Auto) 0.200, Neut % (Auto) 71.2 H, Lymph % (Auto) 14.2 L, [place] % (Auto) 12.5 H, Eos % (Auto) 1.8, Baso % (Auto) 0.1, Absolute Neuts (auto) 5.9, Absolute Lymphs (auto) 1.17, Total Counted Not Reportable 04/12/18 05:10: Sodium 133 L, Potassium 5.0, Chloride 99, Carbon Dioxide 26.0, Anion Gap 8, BUN 10, Creatinine 0.55, Estim Creat Clear Calc 127.24, Est GFR (MDRD) Af Amer 161, Est GFR (MDRD) Non-Af 133, BUN/Creatinine Ratio 18.2, Glucose 57 L, Calcium 8.2 L, Magnesium 1.7 Current Medications Hydrocodone Bitart/Acetaminophen ([place] 5mg-325mg) 1 - 2 tablet PO Q4H PRN PRN PRN Reason: PAIN Enoxaparin Sodium (Lovenox) 40 mg SC DAILY@1000 [facility]ENDR[facility] Last Admin: 04/12/18 09:12 Dose: 40 mg Hydromorphone HCl (Dilaudid Inj) 1 mg IV Q3H PRN PRN PRN Reason: SEVERE PAIN (-03/26) Last Admin: 04/12/18 09:08 Dose: 1 mg Pantoprazole Sodium 40 mg/ (Sodium Chloride) 110 mls @ 330 mls/hr IV Q12 [facility] Last Admin: 04/12/18 09:06 Dose: 330 mls/hr Lactated Ringer's () 1,000 mls @ 100 mls/hr IV .Q10H [facility] Last Admin: 04/11/18 15:11 Dose: 100 mls/hr Magnesium Hydroxide (Milk Of Magnesia) 30 ml PO DAILY PRN PRN PRN Reason: Constipation Nicotine (Nicoderm Cq (Pbkc)) 21 mg TRANSDERM. DAILY [facility] Last Admin: 04/12/18 09:03 Dose: 21 mg Ondansetron HCl (Zofran) 4 mg IV Q8H PRN PRN PRN Reason: NAUSEA Last Admin: 04/10/18 03:16 Dose: 4 mg Oxymetazoline HCl (Afrin (Bkc)) 1 spray NASAL BID [facility] Last Admin: 04/12/18 09:12 Dose: 1 spray Promethazine HCl (Phenergan) 12.5 mg IV Q6H PRN PRN PRN Reason: NAUSEA/VOMITING Sodium Chloride () 5 - 30 ml IV UD PRN PRN Reason: SALINE FLUSH Last Admin: 04/12/18 09:08 Dose: 10 ml Throat Lozenges (Cepacol Sore Throat Lozenge) 2 lozenge MUCOUS MEM Q2H PRN PRN PRN Reason: SORE THROAT Last Admin: 04/12/18 09:03 Dose: 2 lozenge Medical Necessity - Tobacco Use Smoking Status: Current every day smoker Tobacco Use: Cigarettes Assessment/Plan All Active Problems Small bowel obstruction (Acute) 57-year-old female with past medical history of perforated duodenal ulcer status post duodenoplasty in 2015, polysubstance use comes in with worsening abdominal pain, nausea, constipation. CT of the abdomen had shown small bowel obstruction. Patient is status post exploratory laparotomy and extensive lysis of adhesions and ventral incisional herniorrhaphy. 1. Postop day #2 status post exploratory laparotomy, adhesiolysis and ventral incisional herniorrhaphy, pain is controlled, patient is doing well, status post NG tube removal, started on clear liquid diet, tolerating, we will follow-up per general surgery recommendations. 2. Polysubstance use, use of heroin, methamphetamine, marijuana, nicotine, alcohol, no signs of active withdrawal, advised to quit 3. Nicotine dependency, on nicotine patch 4. History of perforated duodenal ulcer status post repair, continue on PPI for now 5. DVT Prophylaxis with Lovenox subcu and early ambulation Code Visit Inpatient E&M: 55953 Subs Hosp L2
[2018-04-12 10:14] VITALS: RESP 16
[2018-04-12 13:23] LABS: Hep C Antibodies >11.0 s/co ratio (0.0-0.9)
[2018-04-12 13:53] LABS: Hep B Surface Antibodies Reactive (.)
[2018-04-12 13:54] LABS: Hepatitis C Ab >11.0 s/co ratio (0.0-0.9)
[2018-04-12 17:05] VITALS: BP 129/77; PULSE 87; RESP 18; TEMP 36.6; O2SAT 96
[2018-04-12] MEDS: Lactated Ringers 1,000 ML 100 ML IV (18:15)
[2018-04-12] MEDS: HYDROcodone Bitartrate/Apap 5/325 Tablet PO (18:50)
[2018-04-12 20:10] VITALS: BP 117/86; PULSE 82; RESP 16; TEMP 36.9; O2SAT 96
[2018-04-13] MEDS: HYDROcodone Bitartrate/Apap 5/325 Tablet PO ×2 (00:58→08:41)
[2018-04-13] MEDS: Lactated Ringers 1,000 ML 100 ML IV (03:51)
[2018-04-13 04:45] VITALS: BP 106/79; PULSE 91; RESP 18; TEMP 36.6; O2SAT 100
[2018-04-13 07:38] LABS: Absolute Neutrophil Count 5.8 X10^3/uL (2.0-7.7); Basophil# 0.01 X10^3/uL; Basophil% 0.1 % (0-1); Eosinophil# 0.22 X10^3/uL; Eosinophils% 2.8 % (0-5); Hematocrit 40.4 % (37-47); Hemoglobin 13.1 g/dl (12.0-15.0); Lymphocyte % 13.8 % (19-41); Mean Corp Hgb Conc 32.4 g/gl (32-36); Mean Corpuscular Hgb 29.8 pg (27.0-32.0); Mean Platelet Vol. 9.6 fl (6.2-12.0); Monocyte# 0.81 X10^3/uL; Monocyte% 10.2 % (0-10); Neutrophil # 5.82 X10^3/uL (2.7-7.7); Neutrophil % 72.8 % (47-70); Platelet Count 198 K/mm3 (150-450); RBC Distribution Width CV 12.7 % (11.6-14.6); RBC Distribution Width SD 42.7 fl (35.1-43.9); Red Blood Count 4.39 M/mm3 (4.2-5.4)
[2018-04-13 07:50] LABS: POSITIVE COUNT NO; POSITIVE DIFFERENTIAL NO; POSITIVE MORPHOLOGY NO
[2018-04-13 08:06] LABS: BUN 5 mg/dL (7-18); EST Glomerular Filtration Rate 120 mL/min (>60); Estimated Creatinine Clearance 116.64 ml/min; Glucose 86 mg/dL (74-106)
[2018-04-13 08:07] LABS: Anion Gap 6 (5-15); BUN/Creat Ratio 8.4 RATIO (10-20); Calcium,Total 8.4 mg/dL (8.5-10.1); Chloride 107 mmol/L (98-107); Est Glom Filt Rate - Afr Amer 146 mL/min (>60); Potassium 3.8 mmol/L (3.5-5.1); Sodium Level 141 mmol/L (136-145)
--- NOTE | 2018-04-13 08:24 | PCM.DC.GS ---
Discharge Diet: Light diet - advance as tolerated Discharge Activity: May Not Drive - No driving for 1 week or while taking narcotic pain meds., May Shower Lifting Restrictions: 10 pounds Call your doctor if your incision/area has: Continuous Slow Oozing, Sudden Increased Bleeding, Increased Pain/ Swelling, Increased Redness, Foul Smelling Discharge, Swelling at the incision site Call your doctor if you observe: Fever of 101 or Higher Suture Line Care: Avoid Pulling/Pushing, Avoid Pinching/Bending Change Dressing in (Days):: 1 - Leave steri-strips in place for 1 week. Cleanse incision/area with: Soap & Water Allergies/Adverse Reactions: Allergies ibuprofen Adverse Reaction (Verified 01/15/18 21:37) Other Medications to take at Discharge Hydrocodone Bitart/Apap 5-325 [[place] 5/325] 1 - 2 tablet PO Q4H PRN PRN 4 Days #20 tablet 04/13/18 The following prescriptions were given: Hydrocodone Bitart/Apap 5-325 [[place] 5/325] 1 - 2 tablet PO Q4H PRN PRN 4 Days #20 tablet PRN Reason: Pain Primary Care Physician: Care Physician,No Primary [NON-STAFF] - Test Results: Test results from this visit will be discussed in further detail at your follow-up appointment, if applicable. Please Follow Up With: Beck Bermeo MD When: Call tomorrow to make 1 week follow up appt [phone]
--- NOTE | 2018-04-13 08:27 | DS.PCM_ITS ---
Discharge Date and Diagnosis - Problem List Patient Problems: Active and Suspected Problems Small bowel obstruction (Acute) Date of Admission: 04/09/18 Date of Discharge: 04/13/18 - Primary Discharge Diagnosis Active and Suspected Problems Small bowel obstruction (Acute) - Secondary Discharge Diagnosis Chronic Problems Tobacco use (Chronic) Elevated liver enzymes (Chronic) Methamphetamine abuse (Chronic) Cannabis abuse (Chronic) Alcohol abuse (Chronic) Hospital Course and Treatment Imaging Results: Clinical Impression(s) from Imaging Studies Abdomen/Pelvis CT 04/09/18 15:51 IMPRESSION: 1. High-grade small bowel obstruction with transition in the mid pelvis. No evidence of perforation. 2. Mild free fluid. N.B. : The above information has been verbally conveyed by Rosanna Hunt MD to Román Benjamin MD, on 04/09/2018 18:55:48 (ET). Electronically Signed: Rosanna Hunt MD at 18:50 EDT Tel , Service support , ADDENDUM: 04/09/18 1904 KUB X-Ray 04/09/18 19:05 IMPRESSION: 1. NG tube terminates in the stomach. 2. Dilated small bowel consistent with previously demonstrated obstruction. Electronically Signed: Rosanna Hunt MD at 20:17 EDT Tel , Service support , Abdomen/Pelvis CT 04/10/18 05:00 IMPRESSION: 1. Dilated small bowel within the right side of the abdomen suggesting possible closed loop obstruction. The proximal small bowel is not dilated. 2. Increasing free fluid is visible in the right side of the abdomen and pelvis suggesting possible tiny perforation. Electronically Signed: Lindy Martinez MD at 5:42 EDT , Service support , Hospitalist Operations: - - Laparotomy with lysis of small bowel adhesions Procedures: None Summary of Care Provided: The patient is a 37 year old F [] Patient Problems: Active and Suspected Problems Small bowel obstruction (Acute) Subjective: Patient reports she is doing well and tolerated full liquids yesterday. She had 2 normal bowel movements. She is only having some mild abdominal soreness where the incision is. She is not having any nausea or vomiting. - Physical Exam General: Alert, Oriented x3, Cooperative Lungs: Normal air movement Cardiovascular: Regular rate, Regular Rhythm Abdomen: Soft, Non-Distended, Tender - Mild tenderness at the incision, - - Incision is clean dry and intact with no drainage or erythema or ecchymosis. Neurological: Cranial nerves II-XII grossly intact Psych/Mental Status: Normal Affect Vital Signs Temp Pulse Resp BP Pulse Ox 97.9 F 91 18 106/79 100 04/13/18 04:45 04/13/18 04:45 04/13/18 04:45 04/13/18 04:45 04/13/18 04:45 Oxygen Delivery Method Room Air Weight: 139 lb 5.314 oz Body Mass Index (BMI) 23.1 Intake and Output for Last 24 Hours 04/11/18 04/12/18 04/13/18 23:59 23:59 23:59 Intake Total 3808 / 3808 3575 / 3575 3096 / 3096 Output Total 2250 / 2250 2100 / 2100 2550 / 2550 Balance 1558 / 1558 1475 / 1475 546 / 546 Laboratory Tests Past 24 Hrs 04/10/18 04/11/18 04/13/18 05:24 06:32 07:20 WBC 8.0 RBC 4.39 Hgb 13.1 Hct 40.4 MCV 92.0 MCH 29.8 MCHC 32.4 RDW 12.7 RDW Differential 42.7 Plt Count 198 MPV 9.6 Immature Gran % (Auto) 0.300 Neut % (Auto) 72.8 H Lymph % (Auto) 13.8 L [place] % (Auto) 10.2 H Eos % (Auto) 2.8 Baso % (Auto) 0.1 Absolute Neuts (auto) 5.8 Absolute Lymphs (auto) 1.10 Total Counted Not Reportable Sodium Potassium Chloride Carbon Dioxide Anion Gap BUN Creatinine Estim Creat Clear Calc Est GFR (MDRD) Af Amer Est GFR (MDRD) Non-Af BUN/Creatinine Ratio Glucose Calcium Hepatitis A IgM Ab Negative Hepatitis A Ab Total Negative Hep Bs Antigen Confirm. indicated Hep Bs Ag Confirmation TNP Hep B Core Total Ab Negative Hep B Core IgM Ab Negative Hepatitis C Ab (EIA) >11.0 H Hepatitis C Ab Confirm >11.0 H 04/13/18 07:20 WBC RBC Hgb Hct MCV MCH MCHC RDW RDW Differential Plt Count MPV Immature Gran % (Auto) Neut % (Auto) Lymph % (Auto) [place] % (Auto) Eos % (Auto) Baso % (Auto) Absolute Neuts (auto) Absolute Lymphs (auto) Total Counted Sodium 141 Potassium 3.8 Chloride 107 Carbon Dioxide 28.0 Anion Gap 6 BUN 5 L Creatinine 0.60 Estim Creat Clear Calc 116.64 Est GFR (MDRD) Af Amer 146 Est GFR (MDRD) Non-Af 120 BUN/Creatinine Ratio 8.4 L Glucose 86 Calcium 8.4 L Hepatitis A IgM Ab Hepatitis A Ab Total Hep Bs Antigen Hep Bs Ag Confirmation Hep B Core Total Ab Hep B Core IgM Ab Hepatitis C Ab (EIA) Hepatitis C Ab Confirm Discharge Diet: Light diet - advance as tolerated Discharge Activity: May Not Drive - No driving for 1 week or while taking narcotic pain meds., May Shower Call your doctor if your incision/area has: Continuous Slow Oozing, Sudden Increased Bleeding, Increased Pain/ Swelling, Increased Redness, Foul Smelling Discharge, Swelling at the incision site Call your doctor if you observe: Fever of 101 or Higher Suture Line Care: Avoid Pulling/Pushing, Avoid Pinching/Bending Change Dressing in (Days):: 1 - Leave steri-strips in place for 1 week. Cleanse incision/area with: Soap & Water Home Medications: Medications to take at Discharge Hydrocodone Bitart/Apap 5-325 [[place] 5/325] 1 - 2 tablet PO Q4H PRN PRN 4 Days #20 tablet 04/13/18 Following Prescrptions Were Given to Patient: Hydrocodone Bitart/Apap 5-325 [[place] 5/325] 1 - 2 tablet PO Q4H PRN PRN 4 Days #20 tablet PRN Reason: Pain Primary Care Physician: Care Physician,No Primary [NON-STAFF] - Please Follow Up With: Beck Bermeo MD When: Call tomorrow to make 1 week follow up appt [phone] Medical Necessity - Tobacco Use Smoking Status: Current every day smoker Tobacco Use: Cigarettes Meaningful Use Info Meaningful Use Diagnoses (Choose all that apply): None applicable
[2018-04-13] MEDS: Oxymetazoline 0.05% 1 SPRAY SPRAY.BTL NASAL (08:33)
[2018-04-13] MEDS: Enoxaparin 40 MG/0.4 ML Syringe SC (08:34)
--- NOTE | 2018-04-13 10:03 | PCM.PN.HOSP ---
Patient Problems: Active and Suspected Problems Small bowel obstruction (Acute) Subjective: Patient was seen and examined. Tolerating regular diet. Denies any worsening abdominal pain no nausea or vomiting. Denies any fever. She has been discharged by general surgery Vitals/I&O's: Vital Signs Temp Pulse Resp BP Pulse Ox 97.9 F 91 18 106/79 100 04/13/18 04:45 04/13/18 04:45 04/13/18 04:45 04/13/18 04:45 04/13/18 04:45 Oxygen Delivery Method Room Air Weight: 63.2 kg Body Mass Index (BMI) 23.1 Intake and Output for Last 24 Hours 04/11/18 04/12/18 04/13/18 23:59 23:59 23:59 Intake Total 3808 / 3808 3575 / 3575 3096 / 3096 Output Total 2250 / 2250 2100 / 2100 2550 / 2550 Balance 1558 / 1558 1475 / 1475 546 / 546 General: Alert, Oriented x3, Cooperative, No apparent distress HEENT: Atraumatic, PERRLA, EOMI, Normocephalic Oral: Moist Mucosa Neck: Supple, No JVD, Negative Carotid Bruits Lungs: Clear to auscultation, Normal air movement Cardiovascular: Regular rate, Regular Rhythm, Normal S1, Normal S2, No murmurs Abdomen: Bowel Sounds Present, Soft, Non Tender, Tender - near the incisional site, dressing is clean and dry. Extremities: No edema, Capillary Refill Less than 3 Seconds Skin: No rashes, No breakdown Musculoskeletal: No Tenderness to Palpation of Joints or Extremities Neurological: Cranial nerves II-XII grossly intact Psych/Mental Status: Normal Affect, Appropriate Laboratory Results 04/10/18 05:24: Hepatitis A IgM Ab Negative, Hepatitis A Ab Total Negative, Hep Bs Antigen Confirm. indicated, Hep Bs Ag Confirmation TNP, Hep B Core Total Ab Negative, Hep B Core IgM Ab Negative, Hepatitis C Ab Confirm >11.0 H 04/11/18 06:32: Hepatitis C Ab (EIA) >11.0 H 04/13/18 07:20: WBC 8.0, RBC 4.39, Hgb 13.1, Hct 40.4, MCV 92.0, MCH 29.8, MCHC 32.4, RDW 12.7, RDW Differential 42.7, Plt Count 198, MPV 9.6, Immature Gran % (Auto) 0.300, Neut % (Auto) 72.8 H, Lymph % (Auto) 13.8 L, [place] % (Auto) 10.2 H, Eos % (Auto) 2.8, Baso % (Auto) 0.1, Absolute Neuts (auto) 5.8, Absolute Lymphs (auto) 1.10, Total Counted Not Reportable 04/13/18 07:20: Sodium 141, Potassium 3.8, Chloride 107, Carbon Dioxide 28.0, Anion Gap 6, BUN 5 L, Creatinine 0.60, Estim Creat Clear Calc 116.64, Est GFR (MDRD) Af Amer 146, Est GFR (MDRD) Non-Af 120, BUN/Creatinine Ratio 8.4 L, Glucose 86, Calcium 8.4 L Current Medications Hydrocodone Bitart/Acetaminophen ([place] 5mg-325mg) 1 - 2 tablet PO Q4H PRN PRN PRN Reason: PAIN Last Admin: 04/13/18 08:41 Dose: 2 tablet Enoxaparin Sodium (Lovenox) 40 mg SC DAILY@1000 JITENDRA Last Admin: 04/13/18 08:34 Dose: 40 mg Magnesium Hydroxide (Milk Of Magnesia) 30 ml PO DAILY PRN PRN PRN Reason: Constipation Nicotine (Nicoderm Cq (Pbkc)) 21 mg TRANSDERM. DAILY [facility] Last Admin: 04/13/18 08:42 Dose: 21 mg Ondansetron HCl (Zofran) 4 mg IV Q8H PRN PRN PRN Reason: NAUSEA Last Admin: 04/10/18 03:16 Dose: 4 mg Oxymetazoline HCl (Afrin (Bkc)) 1 spray NASAL BID [facility] Last Admin: 04/13/18 08:33 Dose: 1 spray Promethazine HCl (Phenergan) 12.5 mg IV Q6H PRN PRN PRN Reason: NAUSEA/VOMITING Sodium Chloride () 5 - 30 ml IV UD PRN PRN Reason: SALINE FLUSH Last Admin: 04/12/18 09:08 Dose: 10 ml Throat Lozenges (Cepacol Sore Throat Lozenge) 2 lozenge MUCOUS MEM Q2H PRN PRN PRN Reason: SORE THROAT Last Admin: 04/12/18 22:01 Dose: 2 lozenge Medical Necessity - Tobacco Use Smoking Status: Current every day smoker Tobacco Use: Cigarettes Assessment/Plan All Active Problems Small bowel obstruction (Acute) 57-year-old female with past medical history of perforated duodenal ulcer status post duodenoplasty in 2014, polysubstance use comes in with worsening abdominal pain, nausea, constipation. CT of the abdomen had shown small bowel obstruction. Patient is status post exploratory laparotomy and extensive lysis of adhesions and ventral incisional herniorrhaphy. 1. Postop day #2 status post exploratory laparotomy, adhesiolysis and ventral incisional herniorrhaphy, pain is controlled, patient is doing well, status post NG tube removal, started on clear liquid diet, tolerating, we will follow-up per general surgery recommendations. 2. Polysubstance use, use of heroin, methamphetamine, marijuana, nicotine, alcohol, no signs of active withdrawal, advised to quit 3. Nicotine dependency, on nicotine patch 4. History of perforated duodenal ulcer status post repair, continue on PPI for now 5. DVT Prophylaxis with Lovenox subcu and early ambulation Code Visit Inpatient E&M: 93862 Subs Hosp L2
[2018-04-13 10:45] VITALS: BP 121/78; PULSE 113; RESP 18; TEMP 36.6; O2SAT 100
[2018-04-13 11:35] VITALS: BP 121/78; PULSE 113; RESP 18; TEMP 36.6; O2SAT 100
== END 2018-04-13 11:35 | disposition home or self-care (01) | DRG 337 ==
LOC: ED 16:33 → MS3 20:59
PROVIDERS: Anesthesiology; Internal Medicine; Surgery; Admitting Provider Family Medicine; Emergency Provider Emergency Medicine; Family Provider Internal Medicine; PCP Internal Medicine; Visit Provider Internal Medicine
PROC: 0DN80ZZ Release Small Intestine, Open Approach (ICD-10-PCS; CPT 49000; principal; 2018-04-10 07:15)
DX: K56.50 Intestinal adhesions [bands], unspecified as to partial versus complete obstruction (principal); F15.10 Other stimulant abuse, uncomplicated; F12.10 Cannabis abuse, uncomplicated; F17.210 Nicotine dependence, cigarettes, uncomplicated; F10.10 Alcohol abuse, uncomplicated; K43.2 Incisional hernia without obstruction or gangrene; R74.8 Abnormal levels of other serum enzymes; Z87.11 Personal history of peptic ulcer disease
CPT/HCPCS: 36415; 74018; 74176; 74177; 80048; 80053; 80307; 81025; 83605; 83690; 83735; 84703; 85025; 85610; 85730; 86703; 86704; 86705; 86706; 86708; 86709; 86803; 87340; 97803; 99284; J7030; J7040; J7120; Q9967; A4216; J2405; J3490

== ENCOUNTER 2018-12-03 19:14 | Emergency (ER) | payer MEDICAID, SELFPAY ==
[2018-12-03 19:16] VITALS: BP 115/68; PULSE 113; RESP 14; TEMP 36.6; O2SAT 100; BMI 22.4
--- NOTE | 2018-12-03 19:27 | ED.VISSUMM ---
- ER Visit Summary Date of Service: 12/03/18 Chief Complaint: [Redness and swelling to the right side of face] History of Present Illness: The patient is a 38 F [presents to the emergency department complaint of redness and swelling to the right side of the face that started 4 days ago. Patient states that it started off like a pimple and she was able to squeeze it and get some pus out of it. Patient states yesterday was much softer and she was able to squeeze some pus out of it. Today it is more firm and indurated and red. Patient has had history of abscesses in the past. She denies any fevers. She denies IV drug use.] Physical Examination: [HEENT-PERRLA, EOMI. Cranial nerves II through XII grossly intact. TMs clear. Mucous membranes moist. No adenopathy. Right cheek-patient does have soft tissue swelling measuring approximately 2.5 cm in diameter over the right cheek. Patient has some mild edema of the right lower eyelid. Mild erythema noted. The area is firm and nonfluctuant. I attempted to express pus from the open area however nothing really able to be expressed. Cardiovascular-regular rate and rhythm without murmur or ectopy Lungs-clear to auscultation, chest wall stable without crepitus or subcu emphysema Abdomen-normoactive bowel sounds, soft, nontender, no rebound or rigidity, no peritoneal signs. Extremities-intact ?4, normal range of motion, normal pulses, atraumatic] Test Results: [None indicated] Emergency Department Course and Treatment: [Patient was started on clindamycin] Treatment Plan: [Will be started with clindamycin and will be referred to her primary care physician follow-up in 3 to 5 days. Patient advised to return if worsening pain, redness, fever, or conditions worsen anyway.] Disposition: [Discharged home in stable condition.] Impression: [Soft tissue abscess right cheek with cellulitis] This note was generated with [employer] dictation software. It may contain incorrect words, spelling, and punctuation that were not noted in review of the chart prior to signing ED Disposition - Plan for ED Patient: Referrals: Nory Thompson MD [Primary Care Provider] -
--- NOTE | 2018-12-03 19:29 | ED.DEP ---
ED Disposition - Plan for ED Patient: Instructions: ABSCESS, Antiobiotic Treatment Only Prescriptions: Clindamycin HCl [Cleocin] 300 mg PO Q6H #40 cap Prescription Printed Referrals: Nory Thompson MD [Primary Care Provider] - Cyn Swartz MD [STAFF PHYSICIAN] - 3-5 Days
[2018-12-03] MEDS: Clindamycin HCl 150 MG Capsule 300 MG PO (19:34)
== END 2018-12-03 19:52 | disposition home or self-care (01) ==
LOC: ED 19:48
PROVIDERS: Emergency Provider Emergency Medicine; Family Provider Internal Medicine; PCP Internal Medicine
DX: L02.01 Cutaneous abscess of face (principal); L03.211 Cellulitis of face; Z72.0 Tobacco use
CPT/HCPCS: 99283

== ENCOUNTER 2019-01-09 21:15 | Emergency (ER) | payer MEDICAID, SELFPAY ==
[2019-01-09 21:17] VITALS: BP 131/73; PULSE 127; RESP 15; TEMP 37.1; BMI 22.6
--- NOTE | 2019-01-09 21:42 | ED.VISSUMM ---
- ER Visit Summary Date of Service: 01/09/19 Chief Complaint: Back pain History of Present Illness: The patient is a [address] Thompson. She reports that she has low back pain that began 2 days ago. States that it is 6 out of 10 at worst and 5-10 currently. She is unable to further describe it. Is worsened by standing or stretching out. She will be by nothing. She denies any radiation to her legs. No numbness or weakness. No problems with her bowels or bladder. She denies any recent illness. No fall, MVA, or change in activity. Patient reports that she has had a couple of episodes of lower abdominal pain. States that this is similar to when she had a small bowel obstruction in the past. She reports that her last bowel movement was 2 days ago. Typically she goes daily. She is passing less flatus than usual. However, she denies any abdominal pain at this time. No nausea or vomiting. No fever or chills. No dysuria frequency. Physical Examination: Vitals: Stable. Afebrile. General: A&O x 3. NAD. Cardiovascular exam: Regular rate and rhythm, no murmur, rub or gallop. Respiratory exam: Clear to auscultation bilaterally. No wheezes or stridor. Abdominal exam: Soft, nontender, nondistended, normal bowel sounds. No peritoneal signs. Back: Diffuse moderate tenderness to palpation over the lumbar spine and the paraspinous musculature in the lumbar region. No point tenderness. Negative straight leg bilaterally. 5/5 DF, PF, EHL bilaterally. Normal sensation to light touch throughout. Extremity: No clubbing, cyanosis, or edema. Test Results: CBC shows a white count 2.2 with 76 segmented neutrophils, 10 lymphocytes, 13 monocytes. H&H is 11.7 and 35.4. Chem-7 shows a sodium 132 and calcium 8.1. test is negative. UA shows 5-10 white blood cells and leukocytes. However, there are no bacteria. This was sent for culture. 3 view of the abdomen shows a nonspecific bowel gas pattern. Emergency Department Course and Treatment: Patient was given a liter of normal saline. She was given Toradol IV. She is resting more comfortably. I did have a prolonged discussion with patient about her back pain. She reports that she was really more calm concerned that she has a small bowel obstruction. She does have a history of IV drug abuse, but reports that she has not used for 2 weeks. I discussed with her the risk of an epidural abscess. At this time I feel that this is unlikely and further work-up for this is not necessary at this time. Treatment Plan: I did discuss with patient that if her symptoms are worsening, she develops fever, or has any other symptoms that she should return for further evaluation of her back pain. She is instructed to use Tylenol and/or ibuprofen for pain. Follow-up your primary care physician in 3 to 5 days if not improving. Disposition: To home in improved and stable condition. Impression: 1. Low back pain. This note was generated with [employer] dictation software. It may contain incorrect words, spelling, and punctuation that were not noted in review of the chart prior to signing ED Disposition - Plan for ED Patient: Instructions: BACK PAIN (Acute or Chronic) Referrals: Cyn Swartz MD [Primary Care Provider] - 3-5 Days if not improving
[2019-01-09] MEDS: Ketorolac 30 MG/ML Syringe IV (22:05)
[2019-01-09] MEDS: 0.9% Normal Saline 1,000 ML 1000 ML IV (22:05)
--- NOTE | 2019-01-09 22:10 | RAD_ITS ---
STUDY: X-RAY - ACUTE ABDOMINAL SERIES REASON FOR EXAM: Female, 38 years old. Abdominal pain TECHNIQUE: Single view of the chest. Supine, and erect view(s) of the abdomen were obtained. COMPARISON: CT scan 04/10/2018, chest x-ray 03/30/2015. FINDINGS: The lungs are clear and expanded. Normal size heart. Normal mediastinum and cristine. Normal visualized pulmonary arteries. Normal visualized aortic arch and descending thoracic aorta. There is a non-specific bowel gas pattern. The soft tissue structures of the abdomen and pelvis are unremarkable. Normal visualized osseous structures. RAD/Acute Abdomen Inc Chest IMPRESSION: No acute abnormality. Electronically Signed: Elio Blanco MD at 22:28 EDT , Service support ,
[2019-01-09 22:13] LABS: Absolute Lymphocyte Count 0.22 X10^3/uL (0.83-4.51); Absolute Neutrophil Count 1.7 X10^3/uL (2.0-7.7); Eosinophil# 0.03 X10^3/uL; Eosinophils% 1.3 % (0-5); Hematocrit 35.4 % (37-47); Hemoglobin 11.7 g/dL (12.0-15.0); Lymphocyte # 0.22 X10^3/ul (4.0); Lymphocyte % 9.9 % (19-41); Mean Corp Hgb Conc 33.1 g/dL (32-36); Mean Corpuscular Hgb 30.2 pg (27.0-32.0); Mean Corpuscular Volume 91.5 fL (81-99); Mean Platelet Vol. 9.8 fl (6.2-12.0); Monocyte# 0.28 X10^3/uL; Monocyte% 12.6 % (0-10); NRBC Flagged by Analyzer 0 % (0-5); Neutrophil # 1.69 X10^3/uL (2.7-7.7); Neutrophil % 75.8 % (47-70); POSITIVE DIFFERENTIAL YES; Platelet Count 162 K/mm3 (150-450); RBC Distribution Width CV 12.7 % (11.6-14.6); RBC Distribution Width SD 42.6 fl (35.1-43.9); Red Blood Count 3.87 M/mm3 (4.2-5.4); White Blood Count 2.2 K/mm3 (4.4-11.0)
[2019-01-09 22:24] LABS: Differential Indicated SCAN CRITERIA MET
[2019-01-09 22:29] LABS: Internal QC Validated? YES +Cl - CLEAR BKGD; Pregnancy, Serum, hCG Quali. NEGATIVE Negative
[2019-01-09 22:32] LABS: Anion Gap 5 (5-15); BUN 10 mg/dL (7-18); BUN/Creat Ratio 12.8 RATIO (10-20); Calcium,Total 8.1 mg/dL (8.5-10.1); Chloride 99 mmol/L (98-107); Creatinine, Serum 0.78 mg/dL (0.55-1.02); EST Glomerular Filtration Rate 88 mL/min (>60); Est Glom Filt Rate - Afr Amer 106 mL/min (>60); Estimated Creatinine Clearance 92.45 ml/min; Glucose 97 mg/dL (74-106); Potassium 3.5 mmol/L (3.5-5.1); Sodium Level 132 mmol/L (136-145)
[2019-01-09 22:38] LABS: Differential Comment SCANNED
[2019-01-09 22:48] LABS: Bacteria 0 SEEN /hpf (None Seen); Mucous, Urine 0 SEEN /hpf (<or=2+)
[2019-01-09 22:54] LABS: Color, Urine Yellow (Yellow); Glucose, Dipstick Normal (Normal); Ketone-Dipstick Negative (Negative); Leukocyte Esterase-Dipstick 500 /ul (Negative); Nitrite-Dipstick Negative (Negative); Occult Blood-Urine 10 /ul (Negative); Protein-Dipstick Negative (Negative); Urine Bilirubin Dipstick Negative (Negative); Urine Clarity Clear (Clear); Urine Urobilinogen Normal (Normal); Urine pH 6.5 (5.0 - 8.0)
[2019-01-09 22:57] LABS: Red Blood Cells-Urine 0-5 SEEN /hpf (0-5); Squamous Epithelial Cells - UA 0-5 SEEN /hpf (5-10); White Blood Cells 5-10 SEEN /hpf (0-5)
[2019-01-09 23:18] VITALS: BP 121/81; PULSE 99; RESP 14; O2SAT 99
[2019-01-12 14:28] LABS: Pathologist Review Reviewed
== END 2019-01-09 23:18 | disposition home or self-care (01) ==
LOC: ED 21:46
PROVIDERS: Emergency Provider Emergency Medicine; Family Provider Internal Medicine; PCP Internal Medicine
DX: M54.5 Low back pain (principal); R10.30 Lower abdominal pain, unspecified; Z87.19 Personal history of other diseases of the digestive system
CPT/HCPCS: 74022; 80048; 81001; 84703; 85025; 87086; 87088; 96361; 96374; 99283; J7030; A4216

== ENCOUNTER 2020-04-03 14:43 | Emergency (ER) | payer SELFPAY ==
[2020-04-03 14:44] VITALS: BP 132/96; PULSE 102; RESP 18; TEMP 36.5; O2SAT 98; BMI 24.9
--- NOTE | 2020-04-03 15:09 | ED.VIS.GEN ---
History of Present Illness Chief Complaint: Overdose Narrative: This patient is a 39-year-old female who had a transient episode of unresponsiveness. She does admit to fentanyl use. She is last night but does not remember using today. EMS was called because she was unresponsive. She was given 6 mg of Narcan and is now alert and oriented with no complaints. She denies recent illness the last few days no fevers no vomiting no diarrhea. She does not recall feeling lightheaded or dizzy. She does not think this was a syncopal episode. Past Medical History - Allergies and Home Meds Allergies/Adverse Reactions: Allergies ibuprofen Adverse Reaction (Verified 04/03/20 14:51) Other Primary Care Physician: Cyn Swartz MD [Primary Care Provider] - Past Medical History: None Surgical History: - - Exploratory laparotomy for duodenal ulceration w/ duodenoplasty, BLTL. Smoking Status: Current every day smoker - Family History Maternal Family History: Reports: - - Patient notes a maternal and paternal family history of heart disease, diabetes, high blood pressure. Paternal Family History: Reports: - - Patient notes a maternal and paternal family history of heart disease, diabetes, high blood pressure. Review of Systems All systems negative except as indicated General: Denies: Fever Eyes: Denies: Visual changes - bilaterally ENT: Denies: Bilateral ear pain Cardiovascular: Denies: Chest pain Respiratory: Denies: Dyspnea Gastrointestinal: Denies: Nausea, Vomiting, Diarrhea Musculoskeletal: Denies: Myalgias, Arthralgias Skin: Denies: Rash Neurological: Denies: Headache Physical Exam Vital Signs/Narrative: Vital Signs Temp Pulse Resp BP Pulse Ox 04/03/20 14:44 97.7 F L 102 H 18 132/96 H 98 Inital Vital Signs reviewed: Yes General: Well nourished Head: Normocephalic Eyes: EOMI ENT: Moist mucous membranes Neck: Supple Cardiovascular: Regular rhythm, Tachycardia Respiratory: No distress, CTA bilaterally Abdomen: Soft, Nontender Skin: Normal color Neurological: Alert Psychological: Normal affect Diagnostic/Tx/Re-eval - Medical Decision Making At this time patient has no complaints. Except for mild tachycardia she has a normal exam. She did respond to Narcan and this is most likely related to an opiate overdose. We will plan on observing the patient but as long as she remains asymptomatic I feel she can be safely discharged after period of observation. ED Disposition - Plan for ED Patient: Disposition: Home or Assisted Living Diagnosis: Opiate overdose Instructions: ED Overdose Opiate, ED Abuse Narcotic Referrals: Cyn Swartz MD [Primary Care Provider] -
[2020-04-03 15:34] VITALS: BP 115/71; PULSE 102; RESP 16; O2SAT 98
[2020-04-03 15:44] VITALS: BP 162/100; PULSE 96; RESP 17; O2SAT 98
== END 2020-04-03 16:02 | disposition home or self-care (01) ==
PROVIDERS: Emergency Provider Emergency Medicine; PCP Internal Medicine
DX: R00.0 Tachycardia, unspecified (principal); T40.601A Poisoning by unspecified narcotics, accidental (unintentional), initial encounter; Y92.9 Unspecified place or not applicable; F17.200 Nicotine dependence, unspecified, uncomplicated
CPT/HCPCS: 99284

== ENCOUNTER 2020-09-30 04:01 | Emergency (ER) | payer MEDICAID, SELFPAY ==
[2020-09-30 04:02] VITALS: BP 119/91; PULSE 80; RESP 16; TEMP 36.6; O2SAT 100; BMI 21.7
--- NOTE | 2020-09-30 04:05 | ED.VIS.UPPEX ---
History of Present Illness Chief Complaint: Laceration Informant: Patient Occurred: Today - YOLANDA Mechanism/Context: Incised - accidentally w/ clean kitchen knife while trying to use it to open a can of cranberries Context: Sudden Onset Timing: Continuous Quality of Pain: - - sore Location: left hand Current Severity: Moderate Maximum Severity: Moderate Worsened by: moving Relieved by: leaving alone Associated Symptoms: Negative for: Parasthesia, Weakness, Loss of Funtion Narrative: [id number]. No loss of function anywhere in her hand. No other injuries. Tetanus Immunization: Unknown - Past Medical History (1) Small bowel obstruction Status: Suspected (2) Methamphetamine abuse Status: Chronic Past Medical History - Allergies and Home Meds Allergies/Adverse Reactions: Allergies ibuprofen Adverse Reaction (Verified 09/30/20 04:06) Other Primary Care Physician: Cyn Swartz MD [Primary Care Provider] - Surgical History: - - Exploratory laparotomy for duodenal ulceration w/ duodenoplasty, BLTL. Lives: Spouse/ Significant Other Smoking Status: Current every day smoker - Family History Maternal Family History: Reports: - - Patient notes a maternal and paternal family history of heart disease, diabetes, high blood pressure. Paternal Family History: Reports: - - Patient notes a maternal and paternal family history of heart disease, diabetes, high blood pressure. Review of Systems General: Denies: Chills, Fever, Sweats Musculoskeletal: Reports: Extremity Pain Skin: Reports: Wounds. Denies: Rash Neurological: Denies: Headache, Weakness, Numbness Physical Exam Vital Signs/Narrative: Vital Signs Temp Pulse Resp BP Pulse Ox 09/30/20 04:02 98 F 80 16 119/91 H 100 General: Well nourished, Well developed, - - NAD Head: Normocephalic, Atraumatic Extremeties: Full range of motion all joints left hand, able to adduct thumb without difficulty Skin: Normal color, No rash, Trauma - 2cm full thickness clean lac left hand, webspace between thumb and index finger, oozing blood nonpulsatile, no other wounds, no contamination. Neurological: Alert, Oriented x3, Cranial nerves II-XII grossly intact, Normal Strength, Normal Sensation, Normal Gait Psychological: Normal Mood, - - Anxious Diagnostic/Tx/Re-eval - Medical Decision Making Wound was repaired. Not able to be performed under bloodless field since it was in the webspace and I was not able to easily tourniquet. The wound appeared to be clean with no residual foreign body, and given history of just having it with a knife, risk of that is low. No bony tenderness or need for an x-ray in my opinion. After repair, there was good hemostasis and skin edge apposition. Cleansed thoroughly and irrigated under pressure. Patient does not want her tetanus updated at this time. Procedures - Lacerations left hand Length: 2 cm Depth: Sub Q Shape: Linear Prep: Sterile Conditions, Chlorhexadine Laceration repair: Irrigated, Lidocaine - 3cc, Local, Skin sutures Irrigated (ml): 50 Number of Sutures/[place]: 4 Suture Information: Ethilon, Merry, 4-0 ED Disposition - Plan for ED Patient: Disposition: Home or Assisted Living Diagnosis: Laceration of left hand Instructions: ED Laceration, Hand: All Closures Referrals: Cyn Swartz MD [Primary Care Provider] - 10 Day for suture removal
[2020-09-30] MEDS: Lidocaine 1% (20 ml mdv) 20 ML Vial INFILT (04:31)
== END 2020-09-30 04:33 | disposition home or self-care (01) ==
LOC: ED 04:31
PROVIDERS: Emergency Provider Emergency Medicine; PCP Internal Medicine
DX: S61.412A Laceration without foreign body of left hand, initial encounter (principal); W26.0XXA Contact with knife, initial encounter; Y93.9 Activity, unspecified; Y92.9 Unspecified place or not applicable; Y99.9 Unspecified external cause status; F17.200 Nicotine dependence, unspecified, uncomplicated
CPT/HCPCS: 12001; 99283

== ENCOUNTER 2021-12-22 07:11 | Emergency (ER) | payer MEDICAID, SELFPAY ==
[2021-12-22 07:11] VITALS: BP 119/87; PULSE 92; RESP 16; TEMP 36.2; O2SAT 100; BMI 20.9
--- NOTE | 2021-12-22 07:31 | EX.ED.DYSGE1 ---
HPI History of Present Illness Chief Complaint: Ear Problem Informant: patient Narrative Narrative: Patient complains of left ear pain. She was swimming the other day. She had jumped in the water and landed kind of on the side of her head. She thinks this might of been the start of it. Yesterday when she tried to equalize pressure she got air coming out her left ear but it does not seem to do that today. She has not had fevers or chills. No nausea vomiting. No loss of consciousness. No drainage. PFSH PFSH Home Medications amoxicillin 500 mg tablet 500 mg PO TID #30 tabs 12/22/21 [Rx Last Taken Unknown] Allergy/AdvReac Type Severity Reaction Status Date / Time ibuprofen AdvReac Other Verified 12/22/21 07:13 Surgical History Hx of abdominal surgery Social History Smoking Status: Current every day smoker tobacco type: cigarettes ROS ROS ED Constitutional Constitutional ED: Denies chills or fever(s) Eyes Eyes: Denies change in vision ENT ENT ED: Reports ear pain; Denies rhinorrhea Respiratory/Chest Respiratory/Chest: Denies cough Gastrointestinal Gastrointestinal: Denies nausea or vomiting Musculoskeletal Musculoskeletal: Denies neck pain Integumentary Denies rash Hematologic/Lymphatic Hematologic/Lymphatic: Denies easy bleeding or easy bruising EXAM Physical Exam Const Vital Signs: 12/22/21 07:11 Temperature 97.2 F L Temperature Source Temporal Pulse Rate 92 Respiratory Rate 16 Blood Pressure 119/87 H Blood Pressure Mean 97 Pulse Ox 100 Oxygen Delivery Method Room Air Positive well nourished and well developed General Appearance ED: well developed and NAD HEENT Reports moist mucous membranes HEENT Narrative: Right tympanic membrane and canal are normal. The left canal is totally normal. There is no tenderness with motion or palpation along the tragus. The eardrum itself is actually quite red and beefy. I do not see signs of a perforation at this time. But there is a lot of erythema even more at the approximately 8 o'clock position. There certainly could have been a perforation that is healing or could be a partial tear that I do not see. Eyes PERRL Neck no lymphadenopathy and supple Resp normal respiratory effort Neuro Sensorium / Orientation: alert Psych mental status grossly normal Skin no rashes or lesions noted Skin Narrative: No vesicles or external changes MDM MDM MDM Narrative Medical decision making narrative: Patient may have a pure barotrauma to the eardrum. But is certainly possible she has an infection with small perforation. She thinks this started with landing in the water but is not completely sure. I do not think she needs external drops. I will give her amoxicillin and follow-up with ENT as recommended for recheck. Discharge Plan Triage Chief Complaint: Ear Problem ED Provider: Jose Orellana Dx/Rx/DC Orders Clinical Impression: Otitic barotrauma, initial encounter, Acute otitis media, left Instructions: ED Ear Barotrauma Prescriptions: New amoxicillin 500 mg tablet 500 mg PO TID Qty: 30 0RF Primary Care Provider: Cyn Swartz Referrals: Jalen Oquendo MD [STAFF PHYSICIAN] - 3-5 Days Cyn Swartz MD [Primary Care Provider] - Disposition Disposition: Home, Self Care
== END 2021-12-22 08:07 | disposition home or self-care (01) ==
LOC: ED 07:45
PROVIDERS: Emergency Provider Emergency Medicine; PCP Internal Medicine; Visit Provider Emergency Medicine
DX: T70.0XXA Otitic barotrauma, initial encounter (principal); H66.92 Otitis media, unspecified, left ear; F17.210 Nicotine dependence, cigarettes, uncomplicated; X58.XXXA Exposure to other specified factors, initial encounter
CPT/HCPCS: 99282

== ENCOUNTER 2022-08-17 14:48 | Emergency (ER) | payer MEDICAID, SELFPAY ==
[2022-08-17 14:49] VITALS: BP 118/101; PULSE 127; RESP 18; TEMP 36; O2SAT 94; BMI 23.6
--- NOTE | 2022-08-17 15:42 | ED.RN ---
called for pt at 1542. has left the triage area.
== END 2022-08-17 15:42 | disposition left against medical advice (07) ==
LOC: ED 15:50
PROVIDERS: PCP Internal Medicine
DX: Z53.21 Procedure and treatment not carried out due to patient leaving prior to being seen by health care provider (principal)